=== PATIENT | male | born 1965 | race Caucasian/White ===

== ENCOUNTER 2023-06-17 04:56 | Inpatient (IN) ==
[2023-06-17] MEDS: SODIUM CHLORIDE 0.9% 1,000 ML IV ONE (05:56)
[2023-06-17] MEDS: HYDROmorphone INJ 0.5 MG/0.5 ML SYR IV STA (05:56)
[2023-06-17] MEDS: ONDANSETRON INJ 2 MG/ML 2 ML VIAL IV STA (05:56)
[2023-06-17 06:10] LABS: Basophils # (auto) 0.06 K/uL (0.00-0.20); Basophils % (auto) 0.5 %; Eosinophils # (auto) 0.12 K/uL (0.00-0.50); Eosinophils % (auto) 1.1 %; Hematocrit (blood only) 38.9 % (42.0-52.0); Hemoglobin 13.1 g/dl (14.0-18.0); Immature Granulocytes # (auto) 0.07 K/uL (0.01-0.20); Immature Granulocytes % (auto) 0.6 %; Lymphocytes # (auto) 1.62 K/uL (1.20-3.40); Lymphocytes % (auto) 14.6 %; Mean Corpuscular Hemoglobin 29.7 pg (25.0-34.0); Mean Corpuscular Hgb Conc 33.7 g/dL (32.0-36.0); Mean Corpuscular Volume 88.2 fL (80.0-100.0); Mean Platelet Volume 10.6 fL (9.4-12.4); Monocytes # (auto) 1.01 K/uL (0.11-0.59); Monocytes % (auto) 9.1 %; Neutrophils # (auto) 8.21 K/uL (1.40-6.50); Neutrophils % (auto) 74.1 %; Platelet Count 283 K/uL (130-400); RDW Coefficient of Variation 14.5 % (11.5-14.5); RDW Standard Deviation 46.9 fL (36.4-46.3); Red Blood Count 4.41 M/uL (4.70-6.10); White Blood Count 11.09 K/ul (4.8-10.8)
[2023-06-17 06:29] LABS: Albumin Level 4.2 gm/dl (3.4-5.0); Bilirubin,Total 0.6 mg/dl (0.2-1.0); Calcium 9.7 mg/dl (8.6-10.3); Potassium 3.8 mmol/L (3.5-5.1)
[2023-06-17 06:35] LABS: Albumin Globulin Ratio 1.2 (0.9-2); BUN Creatinine Ratio 23.2 (10-20); Creatinine Clr Calc Pharmacy 79.7 ml/min; Est GFR (African American) 111.4 ml/min; Est GFR (Non-African American) 96.1 ml/min; Globulin 3.4 gm/dl (2.5-4.0); Total Protein 7.6 gm/dl (6.0-8.3)
[2023-06-17 06:49] LABS: Thyroid Stimulating Hormone 1.055 uIu/ml (0.300-4.500)
--- NOTE | 2023-06-17 07:05 | Emergency Department Note ---
Impression & Plan Irritation around percutaneous endoscopic gastrostomy (PEG) tube site, Leaking PEG tube The patient will be admitted by the [facility]. I did consult with the surgeon covering for Dr. Skelton. ED Provider Note NAME: STEVEN GUEVARA AGE: 58 SEX: Male INFORMANT: Patient ED PROVIDER(S): Saadia Bacon DO CHIEF COMPLAINT: Bleeding around PEG tube PLAN: Disposition: Admit to the [facility] MEDICAL DECISION MAKING: This is a 58-year-old male patient who presents to the emergency department with significant bleeding around his PEG tube that was placed just 3 days ago. Patient explains that he has had significant problems with the tube since it was placed. There is significant leak of HCl around the tube to the point that it is burning his skin. Blood was oozing from the tube site initially but then over the past 24 hours the amount of blood has significantly increased. Around 9 PM this evening, he states that the blood was pumping out to the point that he was using more than 40 4 x 4's to control the bleeding. He called EMS to bring him here for evaluation. Upon presentation to the ER, there was no active bleeding on my evaluation. There was severe excoriation and chan noted to the skin surrounding the tube site. Laboratory studies revealed mild leukocytosis with a white count of 11. Hemoglobin was stable at 13. BUN/creatinine ratio was slightly elevated at 23.2 as the patient has not been able to take anything through the tube or by mouth over the past 3 days. On physical exam, he appears significantly dehydrated. Patient was bolused with IV normal saline solution. He received IV Dilaudid and Zofran for the discomfort he had of the skin surrounding the PEG tube. I discussed the case with [facility] and Dr. Jang they will evaluate for further management. Triage Nursing notes: Reviewed and agree with them. Vital Signs: reviewed and unremarkable Chronic Medical/Social Conditions affecting care: Esophageal cancer; status post PEG tube placement Differential Diagnosis: PEG tube dysfunction, dehydration, skin chan surrounding the PEG tube Diagnostics, independently interpreted by me: Imaging studies: Portable chest x-ray: There is free air under the diaphragm most likely secondary to the recent laparoscopy procedure he had. There is perihilar lymphadenopathy noted right greater than left. HPI: 58 year old Male arrives for evaluation of bleeding from PEG tube site. Patient presents stating that significant amount of blood was coming from out around the PEG tube site over the past 24 hours. This amount of blood became much heavier around 9 PM last evening and was soaking through 4 x 4's. Patient is also concerned because there is significant leakage of HCl from around the site on the skin which is causing chan. He has not used the PEG tube yet for feedings. He does note that when he takes fluids by mouth that they seem to extravasate out around the PEG tube. PAST MEDICAL HISTORY: See Below, PAST SURGICAL HISTORY: See Below, SOCIAL HISTORY: The patient lives alone, he does smoke HOME MEDICATIONS: None ALLERGIES: None VITALS: See Below PHYSICAL EXAMINATION: HEENT: Head - normocephalic and atraumatic. Pupils are equal, round, and reactive to light. Extraocular eye muscles are intact, and sclera are anicteric. Nose -dry nasal mucosa without discharge. Mouth -extremely dry buccal mucosa. Oropharynx is nonerythematous and there is no tonsillar exudate or edema noted. Neck: Supple; no cervical lymphadenopathy Heart: Regular rate and rhythm. There is a normal S1 and S2 with no murmurs, clicks, or gallops appreciated. Lungs: Clear to auscultation bilaterally with no wheezes, rales, or rhonchi. Abdomen: Soft, obvious first and second-degree chan to the anterior abdominal wall from HCl around the PEG tube site. There are no palpable pulsatile masses or hepatosplenomegaly. There is no guarding, rigidity, or rebound noted. Extremities: No evidence of cyanosis, clubbing, or edema. There are easily palpable peripheral pulses. Skin: warm and dry with poor turgor and no rashes. Emergency department treatment: IV normal saline bolus, IV Dilaudid, IV Zofran Emergency department course: The patient was evaluated in room B-7. A complete history and physical was performed. An IV lock was initiated and labs were drawn as above. I cleaned around the PEG tube site and removed a small amount of old blood. There was no fresh blood or bright red bleeding noted. There was very minimal leakage noted about the tube. I was able to pass some warm water through the tube with minimal leakage from the tube site. Patient had no abdominal pain with this fluid challenge. Patient was given a dose of IV Dilaudid and IV Zofran for pain on the skin of his abdominal wall and some nausea. I discussed the case with [facility]ist because the patient is unable to tolerate the pain and cannot perform tube feeds. I also discussed the case with Dr. Jang from surgery who will consult on the patient and order a contrast study under fluoroscopy. Past Med/Surg History Medical History Post traumatic stress disorder History of chest pain relating to feeding tube coming out. Esophageal adenocarcinoma Gastrostomy tube in place 04/05/23 - Dr. Tapia [facility] Right wrist fracture surgical pin right wrist Hx of renal calculi passed on own Dysphagia "can't get food past my thyroid, difficult to swallow; no solid foods for 7-8 months" History of COVID-19 x6, most recent 03/2022, not hosp; dysphagia, gum swelling and made teeth hurt, "swollen" thyroid>still making it hard to eat solid food Anxiety Surgical History History of surgery failed peg tube, Apr 06 2023 History of endoscopy History of colonoscopy Hx of tonsillectomy Childhood; Hx of appendectomy Family History Father Prostate cancer Hypertension Dyslipidemia Brother Myocardial infarction, Onset Age: 53 Mother Stroke Brother No problems noted. 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; [employer]; 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 How many Children do You have: 1 Other Information That Helps Us Care for You: No Feels Safe at Home: No Is there a partner from a previous relationship who is making you feel unsafe now?: No Any Concerns about Your Family Situation: No Would You Like to Speak to Someone About Your Situation: No Safety Concerns: Feels Safe At This Time Childhood Exposure to Second-Hand Smoke: No during the past year weight has: decreased > 10 lbs Assistive Devices: None Allergies Allergies Allergy/AdvReac Type Severity Reaction Status Date / Time No Known Allergies Allergy Verified 06/07/23 08:08 Home Meds Home Medications Medication Instructions Recorded Confirmed No Known Home Medications 05/25/23 06/14/23 Results & Data (ED) Vital Signs Vital Signs - 24 hr 06/17/23 10:04 06/17/23 10:41 Pulse Rate 76 Pulse Rate [Apical] 56 L Respiratory Rate 17 Respiratory Effort / Characteristics Non-Labored Spontaneous Respiratory Depth Normal Blood Pressure [Left Arm] 121/71 Blood Pressure Mean [Left Arm] 87 Blood Pressure Position [Left Arm] Lying Pulse Oximetry 97 Oxygen Delivery Method Room Air Laboratory Data 06/17/23 22:57 06/18/23 06:09 Lab Results 06/17/23 06/17/23 Range/Units 05:50 10:10 WBC 11.09 H (4.8-10.8) K/ul RBC 4.41 L (4.70-6.10) M/uL Hgb 13.1 L (14.0-18.0) g/dl Hct 38.9 L (42.0-52.0) % MCV 88.2 (80.0-100.0) fL MCH 29.7 (25.0-34.0) pg MCHC 33.7 (32.0-36.0) g/dL RDW Std Deviation 46.9 H (36.4-46.3) fL RDW Coeff of Mary 14.5 (11.5-14.5) % Plt Count 283 (130-400) K/uL MPV 10.6 (9.4-12.4) fL Immature Gran % (Auto) 0.6 % Neut % (Auto) 74.1 % Lymph % (Auto) 14.6 % Metcalfe % (Auto) 9.1 % Eos % (Auto) 1.1 % Baso % (Auto) 0.5 % Neut # (Auto) 8.21 H (1.40-6.50) K/uL Lymph # (Auto) 1.62 (1.20-3.40) K/uL Metcalfe # (Auto) 1.01 H (0.11-0.59) K/uL Eos # (Auto) 0.12 (0.00-0.50) K/uL Baso # (Auto) 0.06 (0.00-0.20) K/uL Immature Gran # (Auto) 0.07 (0.01-0.20) K/uL Sodium 140 (136-145) mmol/L Potassium 3.8 (3.5-5.1) mmol/L Chloride 104 (98-107) mmol/L Carbon Dioxide 27 (21-32) mmol/L Anion Gap 9 (3-11) BUN 19 (6-23) mg/dl Creatinine 0.82 (0.6-1.4) mg/dl Est Cr Clr Drug Dosing 79.7 ml/min Est GFR ( Amer) 111.4 ml/min Est GFR (Non-Af Amer) 96.1 ml/min BUN/Creatinine Ratio 23.2 H (10-20) Glucose 96 (70-99(Fasting)) mg/dl Calcium 9.7 (8.6-10.3) mg/dl Total Bilirubin 0.6 (0.2-1.0) mg/dl AST 12 L (13-39) U/L ALT 14 (7-52) U/L Alkaline Phosphatase 101 (34-104) U/L Total Protein 7.6 (6.0-8.3) gm/dl Albumin 4.2 (3.4-5.0) gm/dl Globulin 3.4 (2.5-4.0) gm/dl Albumin/Globulin Ratio 1.2 (0.9-2) TSH 1.055 (0.300-4.500) uIu/ml Urine Color Dark Yellow Urine Appearance Cloudy A (Clear) Urine pH 5.0 (4.5-7.5) Ur Specific [place] 1.043 H (1.000-1.030) Urine Protein Trace H (Negative) Urine Glucose (UA) Negative (Negative) Urine Ketones Trace H (Negative) Urine Blood Negative (Negative) Urine Nitrite Negative (Negative) Urine Bilirubin Negative (Negative) Urine Urobilinogen Negative (Negative) Ur Leukocyte Esterase Negative (Negative) Urine RBC 5-10 H (0-4) /hpf Urine WBC 0-5 (0-5) /hpf Ur Epithelial Cells 0-5 (0-5) /lpf Calcium Oxalate Crystal Present A (None Prsent) Urine Bacteria 1+ H (Negative) Urine Mucus Present A (None Prsent) Administered Medications Hydromorphone HCl (Hydromorphone Inj 1 Mg/Ml Syringe) 1 mg IV Q4H PRN PRN Reason: Pain Scale 6,7,8,9,10 Stop: 07/01/23 09:49 Last Admin: 06/18/23 04:43 Dose: 1 mg Documented By: Admin: 06/17/23 19:07 Dose: 1 mg Documented By: Admin: 06/17/23 14:46 Dose: 1 mg Documented By: Admin: 06/17/23 10:01 Dose: 1 mg Documented By: CHUY Sodium Chloride (Nss) 1,000 mls @ 80 mls/hr IV .[id number] JULIANA Stop: 07/17/23 09:59 Last Infusion: 06/18/23 05:16 Dose: Infused Documented By: Admin: 06/18/23 05:15 Dose: Not Given Documented By: Admin: 06/17/23 09:59 Dose: 80 mls/hr Documented By: CHUY Discontinued Medications Hydromorphone HCl (Hydromorphone Inj 0.5 Mg/0.5 Ml Syr) 0.5 mg IV NOW STA Stop: 06/17/23 05:47 Last Admin: 06/17/23 05:56 Dose: 0.5 mg Documented By: CHIQUIS Hydromorphone HCl (Hydromorphone Inj 2 Mg/Ml Syr/Vial) 2 mg IV NOW STA Stop: 06/17/23 22:27 Last Admin: 06/17/23 22:38 Dose: 2 mg Documented By: IRINA Sodium Chloride (Nss) 1,000 mls @ 999 mls/hr IV .Q1H1M ONE Stop: 06/17/23 06:46 Last Infusion: 06/17/23 07:58 Dose: Infused Documented By: Admin: 06/17/23 05:56 Dose: 999 mls/hr Documented By: CHIQUIS Ioversol (Optiray 320 500ml) 88 ml IV ONCE ONE Stop: 06/17/23 09:12 Last Admin: 06/17/23 09:12 Dose: 88 ml Documented By: HOWARD Ondansetron HCl (Ondansetron Inj 2 Mg/Ml 2 Ml Vial) 4 mg IV NOW STA Stop: 06/17/23 05:47 Last Admin: 06/17/23 05:56 Dose: 4 mg Documented By: CHIQUIS Silver Sulfadiazine (Silver Sulfadiazine 1% Cr 50 Gm Jar) Confirm Administered Dose 150 appln .ROUTE .STK-MED ONE Stop: 06/17/23 10:26 Last Admin: 06/17/23 10:39 Dose: 150 appln Documented By: CC Silver Sulfadiazine (Silver Sulfadiazine 1% Cr 50 Gm Jar) 1 appln EXT NOW STA Stop: 06/17/23 22:27 Last Admin: 06/17/23 22:55 Dose: 1 appln Documented By: IRINA Discharge Plan Visit Data Chief Complaint: Feeding/PEG Tube Replacement ED Provider: Saadia Bacon Discharge Problem: Irritation around percutaneous endoscopic gastrostomy (PEG) tube site, Leaking PEG tube Patient Disposition: Admitted As Inpatient Discharge Instructions Interventions: ED Discharge Assessment Last Done: 06/17/23 14:19
--- NOTE | 2023-06-17 07:26 | XRay Report ---
XR chest 1V portable HISTORY: 58 years-old Male weakness acute weakness COMPARISON: 05/24/2023 TECHNIQUE: AP view of the chest. FINDINGS: Unchanged right paratracheal lesion measuring approximately 4.5 cm. Cardiomediastinal and hilar silho uettes are within normal limits. No pneumothorax, pleural effusion, airspace consolidation or pulmona ry edema. Bones appear grossly intact. Healed mid left clavicular fracture deformity. Large amount of pneumoperitoneum. Gastrostomy tube noted. IMPRESSION: 1. Pneumoperitoneum of unknown etiology. Differential considerations include perforated viscus, recen t abdominal surgery or gastrostomy tube dysfunction in this patient with history of esophageal carcin shekhar. 2. Metastatic right paratracheal lymphadenopathy redemonstrated. ACT 112: Negative or not required by law. The above report was generated using voice recognition software. It may contain grammatical, syntax o r spelling errors. Electronically signed by: Tito Cisse M.D. 06/17/2023 7:23 AM
--- NOTE | 2023-06-17 07:55 | Electrocardiogram Report ---
Test Reason : Blood Pressure : / mmHG Vent. Rate : 058 BPM Atrial Rate : 058 BPM P-R Int : 124 ms QRS Dur : 112 ms QT Int : 472 ms P-R-T Axes : 076 075 034 degrees QTc Int : 463 ms Sinus bradycardia Incomplete right bundle branch block Borderline ECG When compared with ECG of 07-JUN-2023 09:52, Nonspecific T wave abnormality now evident in Anterior leads Confirmed by Juancho Castellano ([id number]) on 06/17/2023 7:55:21 AM Referred By: Confirmed By:Domo Castellano
--- NOTE | 2023-06-17 08:44 | History & Physical Report ---
Date of Service June 17, 2023 Assessment & Plan (1) Feeding tube obstruction: Plan: surgery is evaluate the feeding tube and due to bleeding and leakage of gastric contents have placed an ostomy around the tube. However this prevents us from evaluating tube or applying any enzymatic paper cleaner to open the tube out. We will have the tube evaluated by interventional radiology on if were able to. Considerations of using a combination of pancreatic zyme and bicarbonate in 5 mL of water to help replicate what would be clog zapper CT scan does suggest some irritation of the rectus muscle however the patient is not any local tenderness or infectious component to his serology or clinical evaluation at this time and not starting any antibiotics. (2) Esophageal adenocarcinoma: Plan: diagnosis of esophageal adenocarcinoma has not received any radiation or chemotherapeutic treatment. Patient does have complete obstruction of his esophagus unable to pass an endoscope or to apply a stent. He is having difficulty handling secretions and getting oral nutrition with profound weight loss. Intravenous fluids at this time not supporting nutritional care surgical evaluation. Patient has some complaints of anxiety will offer lorazepam to help calm his nerves during this stressful time History of Present Illness Primary Care Provider: Ge Duenas 58-year-old gentleman with a smoking history who presents with obstructed recently placed surgical feeding tube with bleeding at the site ( placed 06/14/23) history of adenocarcinoma of the upper one third of the esophagus (HER2 negative, PDL1 expression, [id number], stage III). The patient did have a completion of the staging work-up which included a PET/CT scan which showed no evidence of metastatic disease. . Concurrent chemotherapy with radiation therapy. 28 - 33 fractions due to the fact that the patient is not a surgical candidate. Original feeding tube placed in mar 31 at [place], this fell out in his sleep, replaced by Dr Skelton 06/14/23 cxr on presentation has pneumoperioneum, but with recent surgery can be from this, pending CT abd pelvis Shows G-tube apparently placed within the stomach there is some fluid collection along the course of the G-tube some irritation in the rectus muscle however patient is not clinically appearing consistent with a rectus sheath infection at this time Allergies Allergy/AdvReac Type Severity Reaction Status Date / Time No Known Allergies Allergy Verified 06/07/23 08:08 Home Medications Medication Instructions Recorded Confirmed Type No Known Home Medications 05/25/23 06/14/23 History Past Med/Surg History Medical History Post traumatic stress disorder History of chest pain relating to feeding tube coming out. Esophageal adenocarcinoma Gastrostomy tube in place 04/05/23 - Dr. Tapia [facility] Right wrist fracture surgical pin right wrist Hx of renal calculi passed on own Dysphagia "can't get food past my thyroid, difficult to swallow; no solid foods for 7-8 months" History of COVID-19 x6, most recent 03/2022, not hosp; dysphagia, gum swelling and made teeth hurt, "swollen" thyroid>still making it hard to eat solid food Anxiety Surgical History History of surgery failed peg tube, Apr 06 2023 History of endoscopy History of colonoscopy Hx of tonsillectomy Childhood; Hx of appendectomy Family History Father Prostate cancer Hypertension Dyslipidemia Brother Myocardial infarction, Onset Age: 53 Mother Stroke Brother No problems noted. 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; [employer]; 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 How many Children do You have: 1 Other Information That Helps Us Care for You: No Feels Safe at Home: No Is there a partner from a previous relationship who is making you feel unsafe now?: No Any Concerns about Your Family Situation: No Would You Like to Speak to Someone About Your Situation: No Safety Concerns: Feels Safe At This Time Childhood Exposure to Second-Hand Smoke: No during the past year weight has: decreased > 10 lbs Assistive Devices: None Review of Systems Review of Systems: moderate distress and anxiety no headache, no visual changes difficulty handling secretions spitting into a cup no chest pain, pressure or palpitations no shortness of breath, cough or wheezes patient has tenderness around his PEG tube site with bleeding and fluid extravasation around the tube no dysuria, hematuria or frequency no focal joint pain or swelling no back pain, CVA tenderness or radicular pain no bruising, bleeding or rashes no focal signs of weakness or numbness or altered sensation complaints of anxiety Physical Exam Physical Exam: The patient appeared thin and chronically ill Vital signs as documented. Head exam is normocephalic atraumatic Neck is without JVD, thyromegaly, or carotid bruits. Lungs are clear to auscultation, no focal loss of breath sounds Cardiac exam, Rhythm is regular.. No murmurs, rubs or gallops. Abdominal exam reveals PEG tube in lower abdomen, bleeding and gastric leaking around tube Extremities are nonedematous and both pedal pulses are present Neurologic exam is alert and oriented, no focal loss of strength or sensation Skin is without bruises or rashes Psychologically is with concerns for anxiety Results & Data Results & Data Vital Signs (Past 12 Hours) Vital Signs Temp Pulse Resp BP Pulse Ox O2 Del Method 06/17/23 06:38 70 98 Room Air 06/17/23 06:30 73 18 112/69 97 06/17/23 05:46 63 06/17/23 05:03 98.1 F 70 16 122/77 94 Room Air Laboratory Results Reviewed CBC reviewed chemistry Diagnostic Findings reviewed checks x-ray with pneumoperitoneum Medications Administered reviewed EKG with sinus bradycardia PG Care Time/CCT Total # of Minutes Spent Total Time Spent with Patient: Total time spent is greater than 50% in coordination of care (as documented) at patient's floor/unit and/or counseling patient: Coding Level of Care Code 78704 INT INP/OBS CARE 255MIN Diagnoses Feeding tube obstruction T85.598A Esophageal adenocarcinoma C15.9
[2023-06-17] MEDS: OPTIRAY 320 500ml IV ONE (09:12)
[2023-06-17] MEDS ORDERED: HYDROmorphone INJ 0.5 MG/0.5 ML SYR IV PRN (09:50)
--- NOTE | 2023-06-17 09:54 | CT Scan Report ---
ABDOMEN AND PELVIS CT WITH IV CONTRAST CT DOSE: 329.39 mGy.cm HISTORY: Acute onset abdominal pain with malfunctioning G-tube. pneumoperitoneum, 06/14/23 gtube non functioning TECHNIQUE: Multiaxial CT images of the abdomen and pelvis were performed following the IV administrat ion of 88 cc of Optiray, A dose lowering technique was utilized adhering to the principles of ALARA. COMPARISON STUDY: PET/CT 04/11/2023 FINDINGS: Trace pericardial effusion. Coronary artery calcifications. Trace pleural effusions with mi ld bibasilar atelectasis, bronchial wall thickening and pulmonary emphysema. Subtle bibasilar centril obular/tree-in-bud nodules. Large amount of pneumoperitoneum has progressively worsened from the prior study. Unremarkable spleen and pancreas. Unchanged nodular thickening of the right adrenal gland. There is a 2.8 cm soft tissue attenuating indeterminate structure noted within the abdominal and upper quadrant anterior to the herrera perior pole left kidney on image 70. The gallbladder is unremarkable. Scattered mostly subcentimeter hypodense foci of the liver are again noted. 2 cm lesion of the inferior right hepatic lobe is again seen, possibly a hemangioma. Patent portal vein. There are a few nonobstructing calculi noted within the bilateral kidneys measuring up to 3 mm on the right and 4 mm on the left. A few left-sided renal cysts are again seen measuring up to 1.3 cm. No hydronephrosis or ureteral calculi. Prostatomegaly wi th urinary bladder wall thickening suggestive of chronic outlet obstruction. Atherosclerosis of the a ranjith without aneurysm. Mild generalized body wall edema. A gastrostomy tube is in place. Air and fluid is noted surrounding the gastrostomy tube with extension to the abdominal wall on image 126. There is asymmetric enlargeme nt and heterogeneity of the left rectus sheath. Hyperdense ascites ([place] of 74) noted in the ab domen and pelvis, notably within the pericolic gutters and dependent pelvis. There is an irregular cl uster of air foci within the abdominal right lower quadrant, possibly air within loops of bowel. No d rainable fluid collection identified. The appendix is reportedly surgically absent. No acute fracture or destructive bone lesion identified. Degenerative changes of the spine, pelvis and hips. Lumbar le voscoliosis. IMPRESSION: 1. Limited exam without the use of enteric contrast. 2. A gastrostomy tube is in place and there is a large amount of likely associated pneumoperitoneum w hich has increased compared to the 04/11/2023 study. The distal tip of the tube is present within the stomach. 3. Air and fluid is noted tracking along the gastrostomy tube within the abdominal wall and there is asymmetric enlargement and heterogeneity of the left rectus musculature. Correlate clinically to excl ude infection. 4. Small amount of hyperdense ascites suggestive of hemoperitoneum. Gastric contents could appear sim ilarly. 5. Nonobstructing bilateral nephrolithiasis. 6. Additional findings as above. ACT 112: Negative or not required by law. The above report was generated using voice recognition software. It may contain grammatical, syntax o r spelling errors. Electronically signed by: Tito Cisse M.D. 06/17/2023 9:51 AM
[2023-06-17] MEDS: SODIUM CHLORIDE 0.9% 1,000 ML IV SCH (09:59)
[2023-06-17] MEDS: HYDROmorphone INJ 1 MG/ML SYRINGE IV PRN (10:01)
[2023-06-17 10:36] LABS: Appearance Urine Cloudy (Clear); Bilirubin Urine Negative (Negative); Blood Urine Negative (Negative); Color Urine Dark Yellow; Glucose Urine UA Negative (Negative); Ketones Urine Trace (Negative); Leukocyte Esterase Urine Negative (Negative); Nitrite Urine Negative (Negative); Protein Urine Trace (Negative); Specific Gravity Urine 1.043 (1.000-1.030); Urobilinogen Urine Negative (Negative)
[2023-06-17] MEDS: SILVER SULFADIAZINE 1% CR 50 GM JAR ONE (10:39)
[2023-06-17 10:59] LABS: Epithelial Cell Urine 0-5 /lpf (0-5); Mucus Urine Present (None Prsent)
[2023-06-17 11:00] LABS: Bacteria Urine 1+ (Negative); Calcium Oxalate Crystals Urine Present (None Prsent); WBC Urine 0-5 /hpf (0-5)
--- NOTE | 2023-06-17 13:21 | Surgery Consultation ---
Date of Consultation June 17, 2023 Assessment & Plan (1) Feeding tube obstruction: With leakage causing chemical burn which is oozing. Silvadene applied and ostomy appliance fashioned to try and protect the skin. As the tube is within the ostomy bag, would not try to declog tonight. Will let Dr. Skelton see pt tomorrow for more definitive decision. Not currently septic; does not have a surgical abdomen. No sign of current infection at the site. OK to eat as tolerated. History of Present Illness Reason for Consultation: ostomy leaking Requesting Physician: Dr Alcala Attending Physician: Dr. Alcala History of Present Illness 58 yr old man with inoperable esophageal cancer scheduled to undergo radiation and chemotherapy. Had issues with a peg tube placed at [place] (leakage). tube fell out after 4 weeks. Had it replaced with Dr. Skelton on 06/14. It has been leaking around the site, causing a chemical burn and bleeding. Area is very painful. He is extremely frustrated and angry over the situation. CT scan shows tube is in the stomach. There is pneumoperitoneum (postop). There is air/ fluid around the tube in the rectus sheath. Allergies Allergy/AdvReac Type Severity Reaction Status Date / Time No Known Allergies Allergy Verified 06/07/23 08:08 Home Medications Medication Instructions Recorded Confirmed Type No Known Home Medications 05/25/23 06/14/23 History Patient History Medical History Post traumatic stress disorder History of chest pain relating to feeding tube coming out. Esophageal adenocarcinoma Gastrostomy tube in place 04/05/23 - Dr. Tapia [facility] Right wrist fracture surgical pin right wrist Hx of renal calculi passed on own Dysphagia "can't get food past my thyroid, difficult to swallow; no solid foods for 7-8 months" History of COVID-19 x6, most recent 03/2022, not hosp; dysphagia, gum swelling and made teeth hurt, "swollen" thyroid>still making it hard to eat solid food Anxiety Surgical History History of surgery failed peg tube, Apr 06 2023 History of endoscopy History of colonoscopy Hx of tonsillectomy Childhood; Hx of appendectomy Family History Father Prostate cancer Hypertension Dyslipidemia Brother Myocardial infarction, Onset Age: 53 Mother Stroke Brother No problems noted. 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 Tube does not flush or suction (? clogged). Results & Data Vital Signs (Past 12 Hours) Vital Signs Temp Pulse Pulse Resp BP BP Pulse Ox 06/17/23 10:41 56 L 17 121/71 97 06/17/23 10:04 76 06/17/23 06:38 70 98 06/17/23 06:30 73 18 112/69 97 06/17/23 05:46 63 06/17/23 05:03 36.7 C 70 16 122/77 94 O2 Del Method 06/17/23 10:41 Room Air 06/17/23 10:04 06/17/23 06:38 Room Air 06/17/23 06:30 06/17/23 05:46 06/17/23 05:03 Room Air
[2023-06-17] MEDS: HYDROmorphone INJ 2 MG/ML SYR/VIAL IV STA (22:38)
[2023-06-17] MEDS: SILVER SULFADIAZINE 1% CR 50 GM JAR EXT STA (22:55)
[2023-06-17 23:09] LABS: Hematocrit (blood only) 35.2 % (42.0-52.0); Hemoglobin 11.9 g/dl (14.0-18.0)
[2023-06-18 06:44] LABS: A calco-baum cmplx NotReported Not Detected (NotDetected); Bact fragilis Not Reported Not Detected (NotDetected); Blood Culture Id Panel See PCR Comment (NotDetected); C auris Not Reported Not Detected (NotDetected); Calbicans Not Reported Not Detected (NotDetected); Candida glabrata Not Reported Not Detected (NotDetected); Candida krusei Not Reported Not Detected (NotDetected); Cneoformans/gatti Not Reported Not Detected (NotDetected); Cparapsilosis Not Reported Not Detected (NotDetected); E cloacae compx Not Reported Not Detected (NotDetected); Efaecalis Not Reported Not Detected (NotDetected); Efaecium Not Reported Not Detected (NotDetected); Enterobacterales Not Reported Not Detected (NotDetected); Escherichia coli Not Reported Not Detected (NotDetected); H influenzae Not Reported Not Detected (NotDetected); K aerogenes Not Reported Not Detected (NotDetected); Koxytoca Not Reported Not Detected (NotDetected); Kpneumoniae grp Not Reported Not Detected (NotDetected); Lmonocyt Not Reported Not Detected (NotDetected); N meningitidis Not Reported Not Detected (NotDetected); P aeruginosa Not Reported Not Detected (NotDetected); Proteus spp Not Reported Not Detected (NotDetected); Salmonella spp Not Reported Not Detected (NotDetected); Smarcescens Not Reported Not Detected (NotDetected); Staph lugdunensis Not Reported Not Detected (NotDetected); Staph spp. Not Reported DETECTED (NotDetected); Staphaureus Not Reported DETECTED (NotDetected); Staphepi Not Reported Not Detected (NotDetected); Staphylococcus spp. DETECTED (NotDetected); Stenmaltophilia Not Reported Not Detected (NotDetected); Strep agal(GrpB) Not Reported Not Detected (NotDetected); Strep pneum Not Reported Not Detected (NotDetected); Strep pyog (GrpA) Not Reported Not Detected (NotDetected); Strep spp Not Reported Not Detected (NotDetected); mecAC+MREJ Resistant Gene MRSA Not Detected (NotDetected)
[2023-06-18] MEDS ORDERED: VANCOMYCIN CONSULT ACTIVE PRN (07:24)
[2023-06-18 07:33] LABS: BUN Creatinine Ratio 25.7 (10-20); Calcium 9.1 mg/dl (8.6-10.3); Creatinine Clr Calc Pharmacy 93.3 ml/min; Est GFR (African American) 118.9 ml/min; Est GFR (Non-African American) 102.6 ml/min; Magnesium 1.9 mg/dl (1.7-2.4); Potassium 3.9 mmol/L (3.5-5.1)
[2023-06-18 07:59] LABS: Hematocrit (blood only) 35.8 % (42.0-52.0); Mean Corpuscular Hemoglobin 29.7 pg (25.0-34.0); Mean Corpuscular Hgb Conc 33.5 g/dL (32.0-36.0); Mean Corpuscular Volume 88.6 fL (80.0-100.0); Mean Platelet Volume 10.9 fL (9.4-12.4); Platelet Count 280 K/uL (130-400); RDW Coefficient of Variation 14.6 % (11.5-14.5); RDW Standard Deviation 47.7 fL (36.4-46.3); Red Blood Count 4.04 M/uL (4.70-6.10); White Blood Count 11.31 K/ul (4.8-10.8)
[2023-06-18] MEDS: VANCOMYCIN HCL 1,500 MG in SODIUM CHLORIDE 0.9% 500 ML IV ONE (09:33)
--- NOTE | 2023-06-18 10:03 | Surgery Progress Note ---
Date of Service June 18, 2023 Assessment & Plan (1) Leaking PEG tube: Plan: Etiology unclear as I used the same gastrotomy opening as before. Nonetheless I added fluid to the balloon and was able to pull it up against the anterior abdominal wall. This does not stop the leakage however the soonest traction is off the tube the leakage recurs. We did clean up the area and replaced Silvadene and secured the tube. We placed a hemostat to help the tube from moving around which has decreased the leakage. Difficult scenario. Certainly part of the problem is his malnutrition and inability to heal surgical sites. He believes he would like the tube removed however I believe this would at least temporarily make the drainage worse. I am going to come back at lunchtime and try to replace with a shorter christie varghese type tube .... This would have potentially allow us to keep the balloon tighter , prevent movement of the long external to and decrease the amount of leakage. If this fails our option would be to simply remove the tube versus a laparoscopy and takedown the gastrocutaneous fistula. Admission and Anticipated Discharge Date Admission Date: June 17, 2023 Subjective Patient seen. Events of the weekend noted. He states he started getting leakage after hard cough at home where fluid came around the tube onto his skin. He tried different techniques to control this at home. He is extremely frustrated and anxious. He initially did not even let me examine him but we convinced him to take the bag off and let me look. Physical Exam Gastrointestinal (Abdomen): G-tube in place. There is a large amount of gastric acid leaking around the tube onto the skin causing the skin burn. He is quite sore. Results & Data Vital Signs (Past 12 Hours) Vital Signs Temp Pulse Resp BP Pulse Ox O2 Del Method 06/18/23 07:00 36.4 C L 54 L 16 116/65 95 Room Air PG Care Time/CCT Total # of Minutes Spent Total Time Spent with Patient: Total time spent is greater than 50% in coordination of care (as documented) at patient's floor/unit and/or counseling patient: Coding Level of Care Code 63937 Post Operative Follow-Up Diagnoses Leaking PEG tube K94.23
[2023-06-18] MEDS ORDERED: ACETAMINOPHEN 1,000 MG/100 ML VIAL IV PRN (11:03)
[2023-06-18] MEDS ORDERED: HYDROmorphone INJ 0.5 MG/0.5 ML SYR IV PRN (11:04)
[2023-06-18] MEDS: HYDROmorphone INJ 1 MG/ML SYRINGE IV PRN ×2 (15:05→19:49)
[2023-06-18] MEDS: ceFAZolin 2000MG 2,000 MG/15 ML SYR IV SCH (15:05)
--- NOTE | 2023-06-18 17:03 | Hospitalist Progress Note ---
Date of Service June 18, 2023 Assessment & Plan (1) Feeding tube obstruction: Plan: surgery is evaluate the feeding tube and due to bleeding and leakage of gastric contents have placed an ostomy around the tube. CT scan does suggest some irritation of the rectus muscle, one culture is with Gram positive, starting any antibiotics following cultures surgery to revise tube on 06/19/23, pt refuses ivf and demands not to be npo except for surgery. (2) Esophageal adenocarcinoma: Plan: diagnosis of esophageal adenocarcinoma has not received any radiation or chemotherapeutic treatment. Patient does have complete obstruction of his esophagus unable to pass an endoscope or to apply a stent. He is having difficulty handling secretions and getting oral nutrition with profound weight loss. Intravenous fluids at this time not supporting nutritional care surgical evaluation. Patient has some complaints of anxiety will offer lorazepam to help calm his nerves during this stressful time Admission and Anticipated Discharge Date Admission Date: June 17, 2023 Subjective pt is in pain, has to hold his PEG tube upright so that it does not leak or bleed, for revision on 06/19/23 Physical Exam Physical Exam: The patient appeared thin and chronically ill Vital signs as documented. Head exam is normocephalic atraumatic Neck is without JVD, thyromegaly, or carotid bruits. Lungs are clear to auscultation, no focal loss of breath sounds Cardiac exam, Rhythm is regular.. No murmurs, rubs or gallops. Abdominal exam reveals PEG tube in lower abdomen, bleeding and gastric leaking around tube continues Extremities are nonedematous and both pedal pulses are present Neurologic exam is alert and oriented, no focal loss of strength or sensation Skin is without bruises or rashes Psychologically is with concerns for anxiety Results & Data Results & Data Vital Signs (Past 12 Hours) Vital Signs Temp Pulse Resp BP Pulse Ox O2 Del Method 06/18/23 14:40 98.6 F 64 16 116/71 93 Room Air 06/18/23 07:00 97.5 F L 54 L 16 116/65 95 Room Air Laboratory Results review cbc review prp PG Care Time/CCT Total # of Minutes Spent Total Time Spent with Patient: Total time spent is greater than 50% in coordination of care (as documented) at patient's floor/unit and/or counseling patient: Coding Level of Care Code 52697 SUB INP/OBS CARE 2/35MIN Diagnoses Feeding tube obstruction T85.598A Esophageal adenocarcinoma C15.9
[2023-06-18] MEDS: LORazepam 0.5 MG in SYRINGE 0.25 ML IV PRN (21:11)
--- NOTE | 2023-06-19 06:39 | History & Physical Bridge Note ---
Date of Service June 19, 2023 History & Physical Bridge Note I have examined the patient, reviewed the History & Physical and in the interval since the performance of the History & Physical I have noted the following changes of clinical significance: no changes noted pt seen. uneventful night. decided he does not want the jejunostomy tube however wants the gastric tube removed and fistula taken down. discussed the risks of poor nutrition without another feeding tube. he understands. discussed risks of todays surgery ( bleeding/infection/injury to another organ/blood clots etc...). questions answered. he is agreeable.
[2023-06-19 06:42] LABS: Hematocrit (blood only) 35.5 % (42.0-52.0); Hemoglobin 11.8 g/dl (14.0-18.0); Mean Corpuscular Hemoglobin 29.4 pg (25.0-34.0); Mean Corpuscular Hgb Conc 33.2 g/dL (32.0-36.0); Mean Corpuscular Volume 88.5 fL (80.0-100.0); Mean Platelet Volume 10.9 fL (9.4-12.4); Platelet Count 246 K/uL (130-400); RDW Coefficient of Variation 14.3 % (11.5-14.5); RDW Standard Deviation 46.6 fL (36.4-46.3); Red Blood Count 4.01 M/uL (4.70-6.10); White Blood Count 10.44 K/ul (4.8-10.8)
[2023-06-19 07:07] LABS: BUN Creatinine Ratio 21.7 (10-20); Calcium 8.7 mg/dl (8.6-10.3); Creatinine Clr Calc Pharmacy 94.7 ml/min; Est GFR (African American) 119.6 ml/min; Est GFR (Non-African American) 103.2 ml/min; Magnesium 1.7 mg/dl (1.7-2.4); Potassium 3.7 mmol/L (3.5-5.1)
--- NOTE | 2023-06-19 11:02 | Anesthesiology Consultation ---
Date of Service June 19, 2023 History Surgery Operation Date: 06/19/23 13:45 Proposed Procedures p Take Down Gastric Fistula - Simba Skelton DO s Laparoscopic Operative - Simba Skelton DO Height/Weight Height: 6 ft 2 in Weight: 58.8 kg Allergies Allergy/AdvReac Type Severity Reaction Status Date / Time No Known Allergies Allergy Verified 06/07/23 08:08 Medications Home Medications Medication Instructions Recorded Confirmed Last Taken No Known Home Medications 05/25/23 06/14/23 Unknown Active Medications Generic Name Dose Route Start Last Admin Trade Name Freq PRN Reason Stop Dose Admin Hydromorphone HCl 1.5 mg 06/18/23 11:04 06/18/23 15:05 Hydromorphone Inj 1 Mg/Ml Syringe IV 07/01/23 09:49 1.5 mg Q4H PRN Administration Pain Scale 7,8,9,10 Hydromorphone HCl 1 mg 06/18/23 11:11 06/19/23 08:33 Hydromorphone Inj 1 Mg/Ml Syringe IV 07/01/23 09:49 1 mg Q4H PRN Administration Pain Scale 4,5,6 Sodium Chloride 1,000 mls @ 80 mls/hr 06/17/23 10:00 06/19/23 09:51 Nss IV 07/17/23 09:59 80 mls/hr .[id number] JULIANA Administration Lorazepam 0.5 mg/ Syringe 0.5 mls @ 2 mls/min 06/17/23 16:42 06/18/23 21:11 IV 07/17/23 16:41 2 mls/min Q6H PRN Administration Anxiety/Agitation Cefazolin Sodium 2,000 mg in 15 mls @ 3.75 mls/min 06/18/23 14:00 06/19/23 05:41 Ancef 2000mg IV 07/02/23 13:59 3.75 mls/min Q8H JULIANA Administration Past Medical History Medical History Post traumatic stress disorder History of chest pain relating to feeding tube coming out. Esophageal adenocarcinoma Gastrostomy tube in place 04/05/23 - Dr. Tapia [facility] Right wrist fracture surgical pin right wrist Hx of renal calculi passed on own Dysphagia "can't get food past my thyroid, difficult to swallow; no solid foods for 7-8 months" History of COVID-19 x6, most recent 03/2022, not hosp; dysphagia, gum swelling and made teeth hurt, "swollen" thyroid>still making it hard to eat solid food Anxiety Past Family History Family History Father Prostate cancer Hypertension Dyslipidemia Brother Myocardial infarction, Onset Age: 53 Mother Stroke Brother No problems noted. Past Surgical History Surgical History History of surgery failed peg tube, Apr 06 2023 History of endoscopy History of colonoscopy Hx of tonsillectomy Childhood; Hx of appendectomy Social History Smoking Status: Current some day smoker Smoking cigarettes per day: rare Do You Dip or Chew Tobacco: No Hx Alcohol Use: No Hx Substance Use: No substance use type: does not use Last Used Substance Other:: CBD w/THC in brownies-most recent use 10-12 days ago Physical Exam Vital Signs Last Vital Signs Temp 36.6 C 06/19/23 07:30 Pulse 60 06/19/23 07:30 Resp 16 06/19/23 07:30 BP 111/69 06/19/23 07:30 Pulse Ox 94 06/19/23 07:30 O2 Del Method Room Air 06/19/23 07:30 Testing Laboratory Results 06/19/23 06:08 06/19/23 06:08 Urine Color Dark Yellow 06/17/23 10:10 Urine Appearance Cloudy (Clear) A 06/17/23 10:10 Urine pH 5.0 (4.5-7.5) 06/17/23 10:10 Ur Specific [place] 1.043 (1.000-1.030) H 06/17/23 10:10 Urine Protein Trace (Negative) H 06/17/23 10:10 Urine Glucose (UA) Negative (Negative) 06/17/23 10:10 Urine Ketones Trace (Negative) H 06/17/23 10:10 Urine Nitrite Negative (Negative) 06/17/23 10:10 Ur Leukocyte Esterase Negative (Negative) 06/17/23 10:10 Urine RBC 5-10 /hpf (0-4) H 06/17/23 10:10 Urine WBC 0-5 /hpf (0-5) 06/17/23 10:10 Ur Epithelial Cells 0-5 /lpf (0-5) 06/17/23 10:10 06/17/23 15:40 Aerobic Blood Culture - Preliminary Blood No growth in Aerobic bottle after 24 hours. Anaerobic Blood Culture - Preliminary Staphylococcus species 06/17/23 10:10 Urine Culture - Final Urine,Clean Catch No growth - less than 1,000 colonies/mL. 06/17/23 15:27 Aerobic Blood Culture - Preliminary Blood No growth in Aerobic bottle after 24 hours. Anaerobic Blood Culture - Preliminary No growth in Anaerobic bottle after 24 hours. Electrocardiogram Date: 06/17/23 Findings: + SB @ (58) and + RBBB (incomplete)
[2023-06-19] MEDS ORDERED: fentaNYL citrate PF 100 MCG/2 ML VIAL ONE (12:51)
[2023-06-19] MEDS ORDERED: ROCURONIUM BROMIDE 10 MG/ML 5 ML VIAL IV ONE (12:51)
[2023-06-19] MEDS ORDERED: MIDAZOLAM HCL 1 MG/ML 2ML VIAL ONE (12:51)
[2023-06-19] MEDS ORDERED: LIDOCAINE 2% 2 ML VIAL/AMP(20MG/ML) INFIL ONE ×2 (12:51→13:38)
[2023-06-19] MEDS ORDERED: PROPOFOL IV EMULSION 10 MG/ML 20 ML VIAL IV ONE ×2 (12:51→15:34)
[2023-06-19] MEDS ORDERED: ATROPINE SULFATE 0.1 MG/ML 10ML SYR IV PRN (13:31)
[2023-06-19] MEDS: LACTATED RINGER'S 1,000 ML IV SCH (13:31)
[2023-06-19] MEDS ORDERED: HYDROmorphone INJ 1 MG/ML SYRINGE IV PRN (13:31)
--- NOTE | 2023-06-19 13:58 | Hospitalist Progress Note ---
Date of Service June 19, 2023 Assessment & Plan (1) Feeding tube obstruction: Plan: surgery is going to remove the feeding tube and due to bleeding and leakage of gastric contents have placed an ostomy around the tube. On 06/19/[address] scan does suggest some irritation of the rectus muscle, one culture is with Gram positive, starting any antibiotics following cultures Pt refuses ivf and demands not to be npo Did not discuss TPN feeding with this patient however he has been bargaining and limiting with what we can use so I am doubtful he will agree to this. (2) Esophageal adenocarcinoma: Plan: diagnosis of esophageal adenocarcinoma has not received any radiation or chemotherapeutic treatment. Patient does have complete obstruction of his esophagus unable to pass an endoscope or to apply a stent. He is having difficulty handling secretions and getting oral nutrition with profound weight loss. Patient has some complaints of anxiety will offer lorazepam as needed anxiety Plan Disposition will based upon the premise if the patient would require or agree to TPN that we might need to keep in for additional day or 2 to we have his TPN calculated with tolerance. Watching for refeeding syndrome as he has been without oral intake for some time. Admission and Anticipated Discharge Date Admission Date: June 17, 2023 Subjective pt has leaking and bleeding along tract of g tube removal today per surgery pt wants to garrett a bit before considering a J tube have not discussed TPN as this is a new idea not to have J tube will discuss Physical Exam Physical Exam: The patient appeared thin and chronically ill Vital signs as documented. Head exam is normocephalic atraumatic Neck is without JVD, thyromegaly, or carotid bruits. Lungs are clear to auscultation, no focal loss of breath sounds Cardiac exam, Rhythm is regular.. No murmurs, rubs or gallops. Abdominal exam reveals PEG tube in lower abdomen, bleeding and gastric leaking around tube Extremities are nonedematous and both pedal pulses are present Psychologically is with anxiety Results & Data Results & Data Vital Signs (Past 12 Hours) Vital Signs Temp Pulse Pulse Resp BP BP Pulse Ox 06/19/23 13:15 98.2 F 70 20 109/66 96 06/19/23 07:30 97.9 F 60 16 111/69 94 O2 Del Method 06/19/23 13:15 Room Air 06/19/23 07:30 Room Air Laboratory Results Reviewed CBC reviewed chemistry PG Care Time/CCT Total # of Minutes Spent Total Time Spent with Patient: Total time spent is greater than 50% in coordination of care (as documented) at patient's floor/unit and/or counseling patient: Coding Level of Care Code 30732 SUB INP/OBS CARE 3/50MIN Diagnoses Feeding tube obstruction T85.598A Esophageal adenocarcinoma C15.9
[2023-06-19] MEDS ORDERED: DEXAMETHASONE SOD INJ 4 MG/ML VIAL ONE (14:43)
[2023-06-19] MEDS ORDERED: ONDANSETRON INJ 2 MG/ML 2 ML VIAL ONE (14:43)
[2023-06-19] MEDS ORDERED: HYDROmorphone INJ 1 MG/ML SYRINGE ONE (14:59)
[2023-06-19] MEDS ORDERED: SUGAMMADEX SODIUM 200 MG/2 ML VIAL IV ONE (15:45)
[2023-06-19] MEDS: BUPIVACAINE/EPINEPHRINE 0.5% MPF 1:200,000 30 ML VIAL ONE (15:51)
--- NOTE | 2023-06-19 16:04 | Operative Report ---
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 - Simba Skelton DO s Laparoscopy, laparoscopic partial gastrectomy(Not Applicable) - Simba Skelton DO Surgeon Simba Skelton DO Commercial Carpenter nils guzman Estimated Blood Loss 50 Findings Consistent with Post-Op Diagnosis Specimens portion of stomach Description of Procedure After informed consent was obtained the patient was taken to the operating room and placed in supine position. After successful intubation I removed the fluid from his gastrostomy tube and remove the feeding tube. The entire abdomen was then sterilely prepped and draped with a Betadine solution. I began by opening his lower midline incision from his prior laparoscopy. The anterior fascia was opened using cautery and #0 Vicryl stay sutures were placed. Peritoneum was elevated with hemostats and incised under direct vision using a Metzenbaum s cissor. A finger sweep was performed and a 12 mm Whipple trocar was placed. The abdomen was insufflated to 16 mmHg. Laparoscope was inserted and the abdomen was examined in 360 degrees. There was some old blood throughout the abdomen but no evidence of any active bleeding. A right upper quadrant 12 mm port which would later be converted to a 15 mm port was placed followed by right mid abdominal 5 mm port and eventually a left mid abdominal 5 mm port. I began by irrigating suctioning out the old blood. The gastrocutaneous fistula from his old gastrostomy tube was intact. I began by taking this down using several ANNIE black cartridge 60 mm staplers. Once the fistulous tract was divided I then used traction and the harmonic scalpel to take down the residual stomach that was still attached to the abdominal wall. Once extracted this was placed into an Endo Catch bag and removed from the abdomen. The fascia from the old gastrostomy tube was closed with a Power Pretty device with 0 Vicryl. Next I identified the ligament of Treitz. I counted about 15 cm distal to the ligament of Treitz and grasped it with a bowel grasper. I extended the 5 m trocar site including the fascia so that I could deliver the jejunum onto the anterior abdominal wall. 3-[address] double pursestrings. A 14 Khmer jejunostomy tube was advanced into the abdomen via a separate stab incision in the left mid abdomen. The balloon was tested. I then made an opening in the jejunum between the pursestrings. The jejunostomy tube was advanced distally and the balloon insufflated with 8 cc of saline. Both pursestrings were secured. I also used 3-0 silk to make a Witzel tunnel of about 4 cm. We then placed the jejunum back into the abdomen. The fascia of this opening was closed using 0 Vicryl in a running fashion. The wound was irrigated and closed using 3-0 Vicryl for deep layers and 4 Monocryl for skin. I did test the jejunal feeding tube and it flushed easily with sterile saline. I changed my gloves after this portion. I then reinsufflated the abdomen and reinserted the laparoscope. There was adequate hemostasis. The jejunal feeding tube was in good position. We then removed all the trocars. The fascia of the camera port was closed using 0 Vicryl in a [id number] fashion. A 15 mm port fascia was also closed using 0 Vicryl. All the wounds were irrigated and closed using 4-0 Monocryl. Marcaine with epinephrine was injected around them for postoperative analgesia. Dermabond glue was used on all of the incision sites.. A drain sponge was placed around the jejunal feeding tube. Plain packing was placed into the prior gastrostomy tube site as well as Silvadene cream on the skin burn followed by gauze and tape. The patient was awakened extubated and transferred to recovery in guarded condition. My nurse practitioner was present for the entire case and was instrumental in providing exposure running the camera assisting with the tube placement wound closure and dressing placement. I attest to the content of the Intraoperative Record and any orders documented therein. Any exceptions are noted below.
[2023-06-19] MEDS: ONDANSETRON INJ 2 MG/ML 2 ML VIAL IV PRN (16:49)
[2023-06-19] MEDS: PROMETHAZINE HCL 6.25 MG in SODIUM CHLORIDE 0.9% 50 ML IV PRN (16:58)
[2023-06-19] MEDS ORDERED: FIBERSOURCE HN 1.2 CAL 1000 ML BAG JT SCH (17:00)
[2023-06-19] MEDS: PROMETHAZINE HCL INJ 25 MG/ML 1 ML VIAL ONE (17:43)
[2023-06-19] MEDS: SODIUM CHLORIDE 0.9% 50 ML BAG ONE (17:44)
[2023-06-19] MEDS: TUBE FEEDING WATER FLUSH JT SCH (17:51)
--- NOTE | 2023-06-19 18:16 | Anesthesiology Progress Note ---
Date of Service June 19, 2023 Anesthesia Post Procedure Vital Signs Vital Signs: Temp Pulse Pulse Resp BP BP Pulse Ox 06/19/23 18:14 36.3 C L 68 14 136/75 97 06/19/23 17:50 36.3 C L 63 14 150/82 H 98 06/19/23 17:15 36.6 C 72 14 153/84 H 98 06/19/23 16:45 84 14 143/85 H 95 06/19/23 16:35 36.6 C 78 15 139/80 96 06/19/23 16:25 79 16 126/75 97 06/19/23 16:15 78 13 134/76 96 06/19/23 16:07 36.5 C 76 14 131/65 98 06/19/23 13:15 36.8 C 70 20 109/66 96 06/19/23 07:30 36.6 C 60 16 111/69 94 06/18/23 20:59 36.5 C 59 L 16 123/73 95 06/18/23 20:35 O2 Del Method O2 Flow Rate 06/19/23 18:14 Room Air 06/19/23 17:50 Room Air 06/19/23 17:15 Room Air 06/19/23 16:45 Room Air 06/19/23 16:35 Room Air 06/19/23 16:25 Oxymask 4 06/19/23 16:15 Oxymask 6 06/19/23 16:07 Oxymask 6 06/19/23 13:15 Room Air 06/19/23 07:30 Room Air 06/18/23 20:59 Room Air 06/18/23 20:35 Room Air Pain Intensity Abdomen: Pain Intensity: 8 Transfer of Care Handoff Completed per policy Notes Mental Status: alert / awake / arousable Patient Amnestic to Procedure: Yes Nausea / Vomiting: adequately controlled Pain: adequately controlled Airway Patency, RR, SpO2: stable & adequate BP & HR: stable & adequate Hydration State: stable & adequate Anesthetic Complications: no major complications apparent
[2023-06-20 07:35] LABS: Hematocrit (blood only) 32.1 % (42.0-52.0); Hemoglobin 10.9 g/dl (14.0-18.0); Mean Corpuscular Hemoglobin 29.6 pg (25.0-34.0); Mean Corpuscular Volume 87.2 fL (80.0-100.0); Mean Platelet Volume 10.7 fL (9.4-12.4); Platelet Count 287 K/uL (130-400); RDW Coefficient of Variation 14.3 % (11.5-14.5); RDW Standard Deviation 45.7 fL (36.4-46.3); Red Blood Count 3.68 M/uL (4.70-6.10); White Blood Count 11.96 K/ul (4.8-10.8)
[2023-06-20 07:46] LABS: BUN Creatinine Ratio 21.4 (10-20); Calcium 8.3 mg/dl (8.6-10.3); Creatinine Clr Calc Pharmacy 93.3 ml/min; Est GFR (African American) 118.9 ml/min; Est GFR (Non-African American) 102.6 ml/min; Magnesium 1.7 mg/dl (1.7-2.4); Phosphorus 2.8 mg/dl (2.5-4.9); Potassium 3.9 mmol/L (3.5-5.1)
--- NOTE | 2023-06-20 10:44 | Surgery Progress Note ---
Date of Service June 20, 2023 Assessment & Plan (1) Leaking PEG tube: Plan: pod 1 doing ok can start tube feeds at anytime rec 1/4 plain packing in old gastrostomy site to be changed daily. Admission and Anticipated Discharge Date Admission Date: June 17, 2023 Subjective pt seen. feeling ok. much improved without the acid leakage. Physical Exam Physical Exam: alert. nad abd: soft. incisions look good. J-tube in place Results & Data Vital Signs (Past 12 Hours) Vital Signs Temp Pulse Pulse Resp BP Pulse Ox O2 Del Method 06/20/23 10:21 36.8 C 84 66 16 133/69 94 06/20/23 09:27 Room Air 06/20/23 08:04 36.8 C 66 16 133/69 94 Room Air PG Care Time/CCT Total # of Minutes Spent Total Time Spent with Patient: Total time spent is greater than 50% in coordination of care (as documented) at patient's floor/unit and/or counseling patient: Coding Level of Care Code 85022 Post Operative Follow-Up Diagnoses Leaking PEG tube K94.23
--- NOTE | 2023-06-20 10:49 | Surgery Progress Note ---
Date of Service June 20, 2023 Assessment & Plan (1) Irritation around percutaneous endoscopic gastrostomy (PEG) tube site: Plan: Please continue Silvadene cream to post gastrostomy tube site May cover with dry gauze and tape (2) Esophageal adenocarcinoma: Plan: POD 1 Take Down Gastric Fistula, Placement of Jejunal Tube, removal of Gastric feeding tube. Laparoscopy, laparoscopic partial gastrectomy Patient to start Jejunal feedings at his convenience, has supplies for nurse to show him Requests to go home today Stable for d/c from a surgical perspective May f/u o/p with Dr. Skelton in 2 weeks Admission and Anticipated Discharge Date Admission Date: June 17, 2023 Subjective Patient sitting up in bed Offers no complaints at present time Review of Systems Constitutional: no fever and no chills Cardiovascular: no chest pain Gastrointestinal: no nausea and no vomiting Integumentary: + erythema (post g tube site ) Neurologic: no confusion and no memory loss Psychiatric: no problem reported Physical Exam Physical Exam: alert oriented Constitutional: cooperative, comfortable and + malnourished; no acute distress Respiratory: normal respiratory effort and able to speak in complete sentences; no respiratory distress Cardiovascular: Rate/Rhythm: regular rate Gastrointestinal (Abdomen): Inspection/Auscultation: + abdominal surgical incision (Left side abdomen Jejunotomy tube); abdomen not distended Neurologic: awake; not confused Speech / Cognition: normal speech Psychiatric: Orientation: oriented x 3 Results & Data Vital Signs (Past 12 Hours) Vital Signs Temp Pulse Pulse Resp BP Pulse Ox O2 Del Method 06/20/23 10:21 98.2 F 84 66 16 133/69 94 06/20/23 09:27 Room Air 06/20/23 08:04 98.2 F 66 16 133/69 94 Room Air PG Care Time/CCT Total # of Minutes Spent Total Time Spent with Patient: Total time spent is greater than 50% in coordination of care (as documented) at patient's floor/unit and/or counseling patient: Coding Level of Care Code 76539 Post Operative Follow-Up Diagnoses Irritation around percutaneous endoscopic gastrostomy (PEG) tube site K94.29 Esophageal adenocarcinoma C15.9
--- NOTE | 2023-06-20 16:58 | Discharge Summary ---
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 The patient did have a completion of the staging work-up which included a PET/CT scan which showed no evidence of metastatic disease. . Concurrent chemotherapy with radiation therapy. 28 - 33 fractions due to the fact that the patient is not a surgical candidate. Original feeding tube placed in mar 31 at [place], this fell out in his sleep, replaced by Dr Skelton 06/14/23 cxr on presentation has pneumoperioneum, but with recent surgery can be from this, pending CT abd pelvis Shows G-tube apparently placed within the stomach there is some fluid collection along the course of the G-tube some irritation in the rectus muscle however patient is not clinically appearing consistent with a rectus sheath infection at this time Principal Diagnosis removal of the G-tube due to leaking placement of J-tube for enteral nutrition esophageal adenocarcinoma with almost obstruction of his esophagus it should be noted patient chose to leave before institution of his hyperalimentation Discharge Exam awake and oriented he is with agitation and wanting to leave to have some time away from healthcare given the amount of things have happened to over the last few weeks seems of sound mind though threatening at times he did not believe the suicide risk he is in agreement to some Ativan to use via his J-tube and was instructed on how to the use of liquids and flushes in his J-tube also to use liquid Tylenol and ibuprofen for pain control. Card exam is regular lungs are clear abdomen has bandages in place. Discharge Data Allergies Allergy/AdvReac Type Severity Reaction Status Date / Time No Known Allergies Allergy Verified 06/07/23 08:08 Consultations 06/17/23 07:36 ED Decision to Admit Stat 06/17/23 14:33 Consult General Surgery Routine Procedures Performed Operation Date: 06/19/23 13:45 Actual Procedures p Take Down Gastric Fistula, Placement of Jejunal Tube, removal of Gastric feeding tube. - Simba Skelton DO s Laparoscopy, laparoscopic partial gastrectomy(Not Applicable) - Simba Skelton DO Ordered Studies 06/17/23 08:51 CT Abd and Pelvis [CT abd pelvis IV con only] Stat Hospital Course (1) Feeding tube obstruction: surgery is going to remove the feeding tube and due to bleeding and leakage of gastric contents On 06/19/2023 the patient had J-tube placed CT scan does suggest some irritation of the rectus muscle, one culture is with Gram positive, clinically the patient does not have any signs or symptoms of infection Pt refuses ivf and demands not to be npo he chews and spits food out. Patient wanted to leave the hospital no matter what and did not want to stay to have instructions on beginning of J-tube feedings or instructions on the pump or even have his home health care secured to begin feeding at home. I personally phoned [facility] on 2 occasions to assure good outpatient follow-up after patient leaves hospital. (2) Esophageal adenocarcinoma: diagnosis of esophageal adenocarcinoma has not received any radiation or chemotherapeutic treatment. Patient does have complete obstruction of his esophagus unable to pass an endoscope or to apply a stent. He is having difficulty handling secretions and getting oral nutrition with profound weight loss. Patient has some complaints of anxiety will offer lorazepam as needed anxiety Total Time Total Time Spent Total Time Spent (In Minutes): It required greater than 30 minutes to prepare this patient for discharge. Discharge Plan Discharge Items Patient Disposition: Home - Home Health Services Reason For Visit: OBSTRUCTED LEAKING BLEEDING PEG TUBE Discharge Diagnosis: leaking G tube site j tube placed esophageal cancer Activity: Per Instructions section Non-emergency contact: Primary Care Provider and Oncologist Call non-emergency contact if: your symptoms worsen Follow-up/Referrals: Ge Duenas [Primary Care Provider] - 06/26/23 10:00 am Diet: Regular Addtl Attending Provider Instructions: please contact [facility] to help coordinate your after care please return if you have fever or increased pain use liquid Children pain medication. try to use Tylenol 500-650 mg or ibuprofen 200mg with water flushes before or after Addtl Micro Paleontologist Provider Instructions: we are trying to arrange your home feeding our radiologic technologist chief has calculated that you will need fiber source at 60 ml and hour rate with free water 100ml at a time 6 times a day usually we start at a low rate to see if you will tolerate and you may notice come loose stool when starting Pending Studies at Discharge: No Stand-Alone Forms: My [facility] [employer], Smoking Cessation Medications and DC Order Prescriptions: New lorazepam [Ativan] 0.5 mg tablet 0.5 mg feeding tube TID PRN (Reason: anxiety) Qty: 10 0RF Rx Instructions: crush and dissolve in 5-10 ml water may also use sublingal No Action No Known Home Medications Discharge Orders: Discharge Order (Routine); Ordered 06/20/23 Ordered By: Ozzie Alcala Admission Data Admit Date/Time: 06/17/23 11:37 Attending Provider: Ozzie Alcala Admit Provider: Ozzie Alcala Primary Care Provider: Ge Duenas Other Providers: Bess,Fax; [employer]; Franklin Cook Matthew D. Other Interventions: Discharge Summary Assessment (RN) Last Done: 06/20/23 10:21 Coding Level of Care Code 29765 INP/OBS DISCH >30 MIN Diagnoses Feeding tube obstruction T85.598A Esophageal adenocarcinoma C15.9
== END 2023-06-20 11:10 | disposition home health service (06) | DRG 326 ==
LOC: ED 04:56 → 3W 11:37

== ENCOUNTER 2023-07-04 10:06 | Inpatient (IN) ==
[2023-07-04 11:24] LABS: Basophils # (auto) 0.07 K/uL (0.00-0.20); Basophils % (auto) 0.6 %; Eosinophils % (auto) 0.8 %; Hematocrit (blood only) 42.7 % (42.0-52.0); Hemoglobin 14.2 g/dl (14.0-18.0); Immature Granulocytes % (auto) 0.8 %; Lymphocytes # (auto) 2.19 K/uL (1.20-3.40); Lymphocytes % (auto) 18.5 %; Mean Corpuscular Hemoglobin 29.5 pg (25.0-34.0); Mean Corpuscular Hgb Conc 33.3 g/dL (32.0-36.0); Mean Corpuscular Volume 88.6 fL (80.0-100.0); Mean Platelet Volume 10.2 fL (9.4-12.4); Monocytes % (auto) 6.8 %; Neutrophils # (auto) 8.59 K/uL (1.40-6.50); Neutrophils % (auto) 72.5 %; Platelet Count 413 K/uL (130-400); RDW Coefficient of Variation 15.1 % (11.5-14.5); RDW Standard Deviation 49.1 fL (36.4-46.3); Red Blood Count 4.82 M/uL (4.70-6.10); White Blood Count 11.85 K/ul (4.8-10.8)
[2023-07-04] MEDS ORDERED: SODIUM CHLORIDE 0.9% 1,000 ML IV ONE (11:35)
[2023-07-04 11:38] LABS: Alanine Aminotransferase 24 U/L (7-52); Albumin Globulin Ratio 1.1 (0.9-2); Albumin Level 4.2 gm/dl (3.4-5.0); Alkaline Phosphatase 108 U/L (34-104); Anion Gap 9 (3-11); Aspartate Aminotransferase 18 U/L (13-39); BUN Creatinine Ratio 23.5 (10-20); Bilirubin,Total 0.6 mg/dl (0.2-1.0); Blood Urea Nitrogen 19 mg/dl (6-23); Calcium 10.1 mg/dl (8.6-10.3); Carbon Dioxide 25 mmol/L (21-32); Chloride 102 mmol/L (98-107); Est GFR (Non-African American) 96.6 ml/min; Globulin 3.7 gm/dl (2.5-4.0); Glucose 103 mg/dl (70-99(Fasting)); Potassium 4.3 mmol/L (3.5-5.1); Sodium 136 mmol/L (136-145); Total Protein 7.9 gm/dl (6.0-8.3)
--- NOTE | 2023-07-04 11:55 | Emergency Department Note ---
Impression & Plan Hypotension, Acute dehydration, Leukocytosis, Esophageal cancer ED Provider Note NAME: STEVEN GUEVARA AGE: 58 SEX: M : 1965 ARRIVES VIA: Walk-In INFORMANT: [Patient] ED PROVIDER(S): [Pj Saravia MD] CHIEF COMPLAINT: Dehydration HISTORY OF PRESENT ILLNESS: The patient is a 58-year-old male who has a history of a feeding tube. He has esophageal cancer and has a hard time taking in fluids and food. He was on a telemedicine call yesterday and hospitalization was recommended. Today, he saw his surgeon who also recommended he come to the ED for hospitalization and IV hydration. The patient states it has been at least a week of decreased oral intake. He has a hard time swallowing, he has had a hard time keeping up with his feeding tube supplementation. He feels quite thirsty, weak and dehydrated. There has been no fever, no cough or congestion. He has no abdominal pain. PMHx/PSHx/Social Hx: See Below PHYSICAL EXAM: GENERAL: Patient is in no acute distress. Thin and frail. HEENT: No acute trauma, normocephalic atraumatic, mucous membranes dry, no nasal congestion. NECK: No stridor, no adenopathy, no meningismus, trachea is midline. LUNGS: Clear to auscultation bilaterally, no wheeze, no rhonchi, breath sounds equal. Breath sounds diminished bilaterally. HEART: Without murmurs gallops or rubs, regular rate and rhythm. Heart tones are quite distant. ABDOMEN: Soft, nontender, no peritonitis. The patient has an old area of feeding tube placement in the left upper quadrant. There is some irritation around the site and there is still some ongoing drainage. No warmth to suggest infection. There is a new feeding tube in place in the lateral left upper quadrant. EXTREMITIES: No cyanosis, full range of motion of all the joints without pain or difficulty. NEUROLOGIC: Oriented x 3, no acute motor or sensory deficits, no focal weakness. SKIN: No jaundice, no diaphoresis. DIFFERENTIAL DIAGNOSIS: Dehydration, electrolyte imbalance, malnutrition, infection, anemia, among others. EMERGENCY DEPARTMENT PROCEDURES: MEDICAL DECISION MAKING: There is a mild leukocytosis, this could be consistent with infection although, the patient has had a mildly elevated white count documented previously. There was a normal hemoglobin. Platelet count slightly elevated. No renal failure or significant electrolyte abnormality. No concerning liver enzyme elevation. Chest film showed fullness to the right mediastinum secondary to his known esophageal cancer. There was no pneumonia or CHF. On exam, the patient was frail and appeared dehydrated. The patient was found to be somewhat hypotensive in triage. The patient is in need of a hospital stay for IV hydration and possibly, rehab. I did speak with the patient and case management, the on-call hospitalist was consulted. The patient received IV saline, 1 L. Prior/Outside records/notes reviewed: Discharge summary note from 06/20/2023 discussing his new feeding tube placement and esophageal adenocarcinoma. ECG per my interpretation: Indication was weakness. The ECG shows a normal sinus rhythm with a rate of 94. There is no ST elevation, no PVCs. The QTc is 467. Continuous Cardiac Monitoring per my interpretation: An order was placed for continuous cardiac monitoring. The monitor shows a rate of 80 with normal sinus rhythm. Imaging/x-ray results per my interpretation: Chest x-ray does not show CHF or pneumonia. The right sided fullness attributed to his esophageal cancer appears stable. Chronic Medical/Social conditions affecting care: Esophageal cancer and malnutrition issues. Care/Management discussed with: Case management, the on-call hospitalist. Level of care consideration(s): After review of the information above and other included data: --I believe the patient requires escalation of care to admission DISPOSITION: Admission Past Med/Surg History Medical History Post traumatic stress disorder History of chest pain relating to feeding tube coming out. Esophageal adenocarcinoma Gastrostomy tube in place 04/05/23 - Dr. Tapia [facility] Right wrist fracture surgical pin right wrist Hx of renal calculi passed on own Dysphagia "can't get food past my thyroid, difficult to swallow; no solid foods for 7-8 months" History of COVID-19 x6, most recent 03/2022, not hosp; dysphagia, gum swelling and made teeth hurt, "swollen" thyroid>still making it hard to eat solid food Anxiety Surgical History (Updated 06/21/23 @ 16:09 by Marguerite Carvalho RN) History of surgery (06/19/23) p Take Down Gastric Fistula, partial gastrectomy, Placement of Jejunal feeding Tube, removal of Gastric feeding tube. - Simba Skelton DO s Laparoscopy, laparoscopic partial gastrectomy(Not Applicable) - Simba Skelton DO History of surgery (06/14/23) Laparoscopy Assisted Placement of a Gastrostomy Tube(Not Applicable) - Simba Skelton DO History of endoscopy History of colonoscopy Hx of tonsillectomy Childhood; Hx of appendectomy Family History Father Prostate cancer Hypertension Dyslipidemia Brother Myocardial infarction, Onset Age: 53 Mother Stroke Brother No problems noted. Social History Smoking Status: Current some day smoker Tobacco Type: Cigarettes Age Started Using Tobacco: 28; packs per day: 1; Cigarettes Per Day: 5; Second Hand Exposure: No; Do You Dip or Chew Tobacco: No; Hx Alcohol Use: No Hx Substance Use: No Preferred Language: Cuban Communication Ability: Effective Visual Impairment: No Limitations Hearing Ability: Normal Servomechanism Assembler Required: No Beliefs That Will Affect Care: None marital status: Single Current Living Situation: Alone Current Living Situation Comment: Pt states he would like some help at home with ADLs current occupational status: unemployed 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; 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; [employer]; 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 How many Children do You have: 1 Feels Safe at Home: Yes Safety Concerns: Feels Safe At This Time Childhood Exposure to Second-Hand Smoke: No during the past year weight has: decreased > 10 lbs Assistive Devices: None Allergies Allergies Allergy/AdvReac Type Severity Reaction Status Date / Time No Known Allergies Allergy Verified 07/04/23 09:22 Home Meds Home Medications Medication Instructions Recorded Confirmed No Known Home Medications 07/04/23 07/04/23 Results & Data (ED) Vital Signs Vital Signs - 24 hr 07/04/23 10:16 07/04/23 11:51 07/04/23 12:00 Temperature 36.6 C Temperature Source Temporal Artery Scan Pulse Rate 102 H 80 Pulse Rate [Right Finger] 72 Pulse Rhythm [Right Finger] Regular Pulse Strength [Right Finger] Normal Respiratory Rate 18 20 Respiratory Effort / Characteristics Non-Labored Spontaneous Non-Labored Spontaneous Respiratory Depth Normal Normal Respiratory Pattern Regular Regular Blood Pressure 92/63 L Blood Pressure [Right Arm] 104/69 Blood Pressure Mean 72 Blood Pressure Mean [Right Arm] 80 Blood Pressure Position Sitting Blood Pressure Position [Right Arm] Sitting Pulse Oximetry 99 98 Oxygen Delivery Method Room Air Room Air Sepsis Recent Fever Within 48 Hours No Sepsis New/Unexplained Change in Mental Status No Sepsis Action Taken by Nursing No Action Required Home Medications Current Medication List: was personally reviewed by me Laboratory Data Attestation: I reviewed the patient's lab results. 07/04/23 11:01 07/04/23 11:01 Lab Results 07/04/23 Range/Units 11:01 WBC 11.85 H (4.8-10.8) K/ul RBC 4.82 (4.70-6.10) M/uL Hgb 14.2 (14.0-18.0) g/dl Hct 42.7 (42.0-52.0) % MCV 88.6 (80.0-100.0) fL MCH 29.5 (25.0-34.0) pg MCHC 33.3 (32.0-36.0) g/dL RDW Std Deviation 49.1 H (36.4-46.3) fL RDW Coeff of Mary 15.1 H (11.5-14.5) % Plt Count 413 H (130-400) K/uL MPV 10.2 (9.4-12.4) fL Immature Gran % (Auto) 0.8 % Neut % (Auto) 72.5 % Lymph % (Auto) 18.5 % [place] % (Auto) 6.8 % Eos % (Auto) 0.8 % Baso % (Auto) 0.6 % Neut # (Auto) 8.59 H (1.40-6.50) K/uL Lymph # (Auto) 2.19 (1.20-3.40) K/uL [place] # (Auto) 0.80 H (0.11-0.59) K/uL Eos # (Auto) 0.10 (0.00-0.50) K/uL Baso # (Auto) 0.07 (0.00-0.20) K/uL Immature Gran # (Auto) 0.10 (0.01-0.20) K/uL Sodium 136 (136-145) mmol/L Potassium 4.3 (3.5-5.1) mmol/L Chloride 102 (98-107) mmol/L Carbon Dioxide 25 (21-32) mmol/L Anion Gap 9 (3-11) BUN 19 (6-23) mg/dl Creatinine 0.81 (0.6-1.4) mg/dl Est Cr Clr Drug Dosing Not Reportable Est GFR ( Amer) 112.0 ml/min Est GFR (Non-Af Amer) 96.6 ml/min BUN/Creatinine Ratio 23.5 H (10-20) Glucose 103 H (70-99(Fasting)) mg/dl Uric Acid 3.4 (2.6-7.2) mg/dl Calcium 10.1 (8.6-10.3) mg/dl Phosphorus 3.5 (2.5-4.9) mg/dl Magnesium 2.1 (1.7-2.4) mg/dl Total Bilirubin 0.6 (0.2-1.0) mg/dl AST 18 (13-39) U/L ALT 24 (7-52) U/L Alkaline Phosphatase 108 H (34-104) U/L Total Protein 7.9 (6.0-8.3) gm/dl Albumin 4.2 (3.4-5.0) gm/dl Globulin 3.7 (2.5-4.0) gm/dl Albumin/Globulin Ratio 1.1 (0.9-2) Administered Medications Enteral Nutritional Formula (Fibersource Hn 1.2 Benjy 1000 Ml Bag) 1,000 ml JT .See Protocol JULIANA; Protocol Stop: 08/03/23 13:59 Last Admin: 07/04/23 18:21 Dose: 1,000 ml Documented By: RRR Multivitamins/Minerals (Multi Vit W/Minerals Liquid 15 Ml Udc) 15 ml PO QAM JULIANA Stop: 08/03/23 15:29 Last Admin: 07/04/23 17:08 Dose: 15 ml Documented By: RRR Sterile Water (Tube Feeding Water Flush) 100 ml JT Q4H JULIANA Stop: 08/03/23 14:14 Last Admin: 07/04/23 18:21 Dose: 100 ml Documented By: Admin: 07/04/23 18:20 Dose: Not Given Documented By: RRR Discontinued Medications Sodium Chloride (Nss) 1,000 mls @ 999 mls/hr IV .Q1H1M ONE Stop: 07/04/23 12:35 Last Infusion: 07/04/23 14:51 Dose: Infused Documented By: Admin: 07/04/23 13:40 Dose: 999 mls/hr Documented By: SWD Lactated Ringer's (Lr) 1,000 mls @ 999 mls/hr IV .Q1H1M ONE Stop: 07/04/23 13:18 Last Infusion: 07/04/23 15:57 Dose: Infused Documented By: Admin: 07/04/23 14:48 Dose: 999 mls/hr Documented By: RRR Thiamine HCl 100 mg/ Syringe 10 mls @ 2 mls/min IV NOW STA Stop: 07/04/23 15:02 Last Admin: 07/04/23 17:08 Dose: 2 mls/min Documented By: KYLEIGH Discharge Plan Visit Data Chief Complaint: Dehydration Stated Complaint: DEHYDRATION, REF BY DOC ED Provider: Pj Saravia Discharge Problem: Hypotension, Acute dehydration, Leukocytosis, Esophageal cancer Patient Disposition: Admitted As Inpatient Condition: Fair Discharge Instructions Interventions: ED Discharge Assessment Last Done: 07/04/23 14:06 Discharge Problem: Hypotension Qualifiers: Hypotension type: unspecified hypotension type Qualified Code(s): I95.9 - Hypotension, unspecified Leukocytosis Qualifiers: Leukocytosis type: unspecified Qualified Code(s): D72.829 - Elevated white blood cell count, unspecified Esophageal cancer Qualifiers: Malignant neoplasm of esophagus location: upper third Qualified Code(s): C15.3 - Malignant neoplasm of upper third of esophagus
[2023-07-04 12:00] LABS: Magnesium 2.1 mg/dl (1.7-2.4)
--- NOTE | 2023-07-04 12:04 | History & Physical Report ---
Date of Service July 04, 2023 Assessment & Plan (1) Generalized weakness: Plan: -Admit to med/tele -Currently hemodynamically stable and stable on RA -Has had progressive generalized weakness since last discharge -Patient has been unable to tolerate his recent J-tube feeds as he is experiencing increased abdominal discomfort and bloating while using Iso-Source 1.5 which is delivered to his home -Has been using ensure and mild via his J-tube as well and has been able to tolerate them -We will admit for dehydration and to have him re-evaluated by our wire saw operator to see if we can adjust his tube feeds; consult placed -We will monitor his electrolytes including phos and uric acid for signs of re- feeding syndrome -Currently receiving 1L NSS from the ED, will give 1L LR bolus after NSS bolus is finished then likely continue maintenance fluids -Electrolytes are currently stable, will add on urgent phos and uric acid now -Patient should likely be setup with the infusion center for routine IV hydration to prevent the need for recurrent admissions for dehydration in the future -Will obtain chest xray on admission to monitor for aspiration -SQ lovenox for DVT PPX -PT/OT/CM consults place to assist with home PT/OT/Home health -Will order regular diet with soft/bite sized portions -Aspiration precautions -AM CBC, CMP, Mag, Phos, Uric Acid (2) Hypotension: Plan: -Patient noted to be hypotensive on arrival at 92/63 -Patient appears clinically stable and is mentating appropriately -Likely due to significant dehydration and malnutrition -Continue IV fluids (3) Constipation: Plan: -Patient reports 5 days of constipation -Likely due to poor nutrition since last admission -Explained to patient that I wanted to obtain a KUB to rule out any obstruction prior to ordering a bowel regimen, he states that he is currently comfortable and wants to wait to get the KUB for now -Will start with re-hydration and restarting J-tub feeds to see if this resolves his constipation (4) Jejunostomy tube present: Plan: -Will obtain KUB to monitor for any structural abnormalities causing his recent abdominal discomfort (5) Esophageal adenocarcinoma: Plan: -Following with Rad oncology and Oncology to start radiation and chemotherapy in the near future -Continue to follow up with both Plan The patient was discussed with Dr. 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 In the ED he was noted to be hypotensive at 92/63 and tachycardic with HR of 102 but otherwise stable. Labs were significant for a stable leukocytosis of 11 and stable electrolytes. Prior to admission the patient was ordered 1L NSS. At the time of the exam the patient was sitting in bed in no acute distress. He states that he has been having difficulty tolerating his tube feeds at home. When asked to clarify, he states that he has been getting increased bloating and abdominal discomfort while using his Iso-Source 1.5 feeds via his J-tube. He has been trying to supplement with ensure and milk as well and has been tolerating those better. He states that he feels generally weak and dehydrated. He is interested in having PT/OT and home health setup for discharge. He denies recent fever, chills, chest pain, nausea, vomiting, dysuria, hematuria, melena, diarrhea, LE swelling, and recent trauma. He states that he has not had a bowel movement in 5 days. Of note, the patient is adamant about wanting to have a regular diet so he can chew food and spit it out. He can only swallow liquids at this time. He understands the increased risk for aspiration and possible respiratory failure and is willing to continue despite these risks. He is a full code and would want his Regenerator Operator, Bhavesh Everett to make medical decisions for him if he cannot make them himself. He recently saw Radiation oncology and underwent CT simulation. He is scheduled to start chemotherapy with Oncology next week per the patient. Please refer to Dr. Bañuelos's attestation for any changes to the treatment plan Allergies Allergy/AdvReac Type Severity Reaction Status Date / Time No Known Allergies Allergy Verified 07/04/23 09:22 Home Medications Medication Instructions Recorded Confirmed Type No Known Home Medications 07/04/23 07/04/23 History Past Med/Surg History Medical History Post traumatic stress disorder History of chest pain relating to feeding tube coming out. Esophageal adenocarcinoma Gastrostomy tube in place 04/05/23 - Dr. Tapia [facility] Right wrist fracture surgical pin right wrist Hx of renal calculi passed on own Dysphagia "can't get food past my thyroid, difficult to swallow; no solid foods for 7-8 months" History of COVID-19 x6, most recent 03/2022, not hosp; dysphagia, gum swelling and made teeth hurt, "swollen" thyroid>still making it hard to eat solid food Anxiety Surgical History (Updated 06/21/23 @ 16:09 by Marguerite Carvalho RN) History of surgery (06/19/23) p Take Down Gastric Fistula, partial gastrectomy, Placement of Jejunal feeding Tube, removal of Gastric feeding tube. - Simba Skelton DO s Laparoscopy, laparoscopic partial gastrectomy(Not Applicable) - Simba Skelton DO History of surgery (06/14/23) Laparoscopy Assisted Placement of a Gastrostomy Tube(Not Applicable) - Simba Skelton, History of endoscopy History of colonoscopy Hx of tonsillectomy Childhood; Hx of appendectomy Family History Father Prostate cancer Hypertension Dyslipidemia Brother Myocardial infarction, Onset Age: 53 Mother Stroke Brother No problems noted. Social History Smoking Status: Current some day smoker Tobacco Type: Cigarettes Age Started Using Tobacco: 28; packs per day: 1; Cigarettes Per Day: 5; Second Hand Exposure: No; Do You Dip or Chew Tobacco: No; Hx Alcohol Use: No Hx Substance Use: No Preferred Language: Wolof Communication Ability: Effective Visual Impairment: No Limitations Hearing Ability: Normal Employee Services Manager Required: No Beliefs That Will Affect Care: None marital status: Single Current Living Situation: Alone Current Living Situation Comment: Pt states he would like some help at home with ADLs current occupational status: unemployed 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; 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; [employer]; 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 How many Children do You have: 1 Feels Safe at Home: Yes Childhood Exposure to Second-Hand Smoke: No during the past year weight has: decreased > 10 lbs Assistive Devices: None Physical Exam Physical Exam: Physical Exam: General: In no acute distress, stated age, severely malnourished and cachectic, non-toxic appearing HEENT: Normocephalic, atraumatic, no scleral icterus, pupils around round, symmetrical, and reactive to light, dry mucus membranes, trachea midline, no thyromegaly Chest/Pulm: No respiratory distress, symmetrical chest expansion, clear breath sounds throughout Cardiac: RRR, no murmurs noted Abdomen: Negative for ascites and bruising, previous G-tube site with recent scab removal but is without bleeding or signs of infection, J-tube located in the left lateral abdomen is without acute signs of drainage or infection, hypoactive bowel sounds, soft, tender to palpation in the BL lower abdomen without rebound tenderness Musculoskeletal: Symmetrical and without signs of acute trauma, upper and lower extremities with full ROM, no atrophy, spasticity, or flaccidity Extremities: Radial, dorsalis pedis, and posterior tibial pulses are intact and symmetrical, no edema noted in the BL LE's Skin: Warm, dry, no rashes , lesions, or scars noted Neuro: Alert and oriented to person, place, month, year, and president, no focal defects,no tremors noted Psych: No acute distress, calm and cooperative during the exam Results & Data Results & Data Vital Signs (Past 12 Hours) Vital Signs Temp Pulse Resp BP Pulse Ox O2 Del Method 07/04/23 11:51 80 07/04/23 10:16 36.6 C 102 H 18 92/63 L 99 Room Air Laboratory Results Abnormal lab results 07/04/23 Range/Units 11:01 WBC 11.85 H (4.8-10.8) K/ul RDW Std Deviation 49.1 H (36.4-46.3) fL RDW Coeff of Mary 15.1 H (11.5-14.5) % Plt Count 413 H (130-400) K/uL Neut # (Auto) 8.59 H (1.40-6.50) K/uL Sac # (Auto) 0.80 H (0.11-0.59) K/uL BUN/Creatinine Ratio 23.5 H (10-20) Glucose 103 H (70-99(Fasting)) mg/dl Alkaline Phosphatase 108 H (34-104) U/L ECG Additional Comments: Normal sinus rhythm Right atrial enlargement Incomplete right bundle branch block Borderline ECG When compared with ECG of 17-JUN-2023 06:03, Vent. rate has increased BY 36 BPM Code Status & VTE Plan Code Status Full code VTE Prophylaxis Plan VTE Prophylaxis will be ordered: Yes Supervising Physician Co-Signing Physician Notes Attending addendum: I have physically seen this patient, have supervised the PERRY's activities, and agree with the H&P unless as otherwise noted. Assessment and Plan: Generalized weakness- Admit to medical telemetry Patient has undergone change from G-tube to J-tube, and still unable to tolerate food feeds at home, He was advised to come into the hospital for rehydration, having already received 1 L NSS bolus in the ED Give additional 1 L LR bolus, then maintenance fluids Consult to nutrition Consult PT/OT/CM Aspiration precautions Follow serial CBC with differential, chemistry profile, magnesium, phosphorus and uric acid Hypotension- Blood pressure relatively low upon arrival at 92/63 Has improved with IV fluids Follow on telemetry for now PG Care Time/CCT Total # of Minutes Spent Total Time Spent with Patient: Total time spent is greater than 50% in coordination of care (as documented) at patient's floor/unit and/or counseling patient: C[place] [address] INT INP/OBS CARE 2/55MIN Patient Type Established Medical Decision Making Moderate Complexity Diagnoses Generalized weakness R53.1 Hypotension I95.9 Constipation K59.00 Jejunostomy tube present Z93.4 Esophageal adenocarcinoma C15.9
[2023-07-04] MEDS ORDERED: LACTATED RINGER'S 1,000 ML IV ONE (12:18)
[2023-07-04] MEDS ORDERED: LORazepam 0.5 MG TAB PO PRN (12:22)
[2023-07-04] MEDS ORDERED: ACETAMINOPHEN 325 MG TAB PEG PRN (13:01)
[2023-07-04] MEDS ORDERED: ONDANSETRON INJ 2 MG/ML 2 ML VIAL IV PRN (13:01)
[2023-07-04 13:06] LABS: Phosphorus 3.5 mg/dl (2.5-4.9); Uric Acid 3.4 mg/dl (2.6-7.2)
--- NOTE | 2023-07-04 13:24 | XRay Report ---
SINGLE VIEW CHEST CLINICAL HISTORY: Aspiration FINDINGS: 2 AP, portable, upright chest radiographs are compared to study dated 06/17/2023 and correl ated with chest CT dated 03/06/2023. The examination is degraded by portable technique and patient rot ation. The cardiomediastinal silhouette is unremarkable. Emphysema and chronic interstitial thickeni ng is similar to previous. A right paratracheal density is unchanged and consistent with known lympha denopathy. There is mild bibasilar scarring/atelectasis. No airspace consolidation or large pleural e ffusion is identified. No pneumothorax is seen. The skeletal structures are osteopenic. There is chromosomal disorders counselor oh deformity of the left clavicle. IMPRESSION: 1. Emphysematous change with no acute cardiopulmonary abnormality identified. 2. Right paratracheal density is unchanged and consistent with known lymphadenopathy. ACT 112: Negative or not required by law. Electronically signed by: Pj Jenkins M.D. 07/04/2023 1:23 PM
[2023-07-04] MEDS ORDERED: Patient's HEIGHT &/or WEIGHT Needed SCH (14:45)
[2023-07-04] MEDS ORDERED: THIAMINE HCL 100 MG in SYRINGE 9 ML IV STA (14:58)
--- NOTE | 2023-07-04 15:18 | Electrocardiogram Report ---
Test Reason : Blood Pressure : / mmHG Vent. Rate : 094 BPM Atrial Rate : 094 BPM P-R Int : 134 ms QRS Dur : 108 ms QT Int : 374 ms P-R-T Axes : 089 086 072 degrees QTc Int : 467 ms Normal sinus rhythm Right atrial enlargement Incomplete right bundle branch block Borderline ECG When compared with ECG of 17-JUN-2023 06:03, Vent. rate has increased BY 36 BPM Confirmed by Juancho Castellano ([id number]) on 07/04/2023 3:17:50 PM Referred By: Confirmed By:Domo Castellano
[2023-07-04] MEDS ORDERED: Patient's HEIGHT &/or WEIGHT Needed STA (15:30)
[2023-07-04] MEDS: MULTI VIT W/MINERALS LIQUID 15 ML UDC PO SCH (17:08)
[2023-07-04] MEDS: TUBE FEEDING WATER FLUSH JT SCH ×3 (18:20→22:33)
[2023-07-04] MEDS: FIBERSOURCE HN 1.2 CAL 1000 ML BAG JT SCH (18:21)
[2023-07-04] MEDS: ENOXAPARIN INJ 40 MG/0.4 ML SYR SQ SCH ×2 (19:55→20:06)
[2023-07-04] MEDS: THIAMINE HCL 100 MG in SYRINGE 9 ML IV SCH (19:55)
[2023-07-04] MEDS ORDERED: FAMOTIDINE 20 MG TAB PO PRN (19:59)
[2023-07-04] MEDS ORDERED: IBUPROFEN 600 MG TAB PO PRN (19:59)
[2023-07-04] MEDS ORDERED: MoRPHine SULFATE 4 MG/ML 1 ML CARP\\VIAL IV PRN (21:08)
[2023-07-04] MEDS ORDERED: MoRPHine SULFATE 2 MG/ML CARP IV PRN (21:08)
[2023-07-04] MEDS ORDERED: HYDROmorphone INJ 0.5 MG/0.5 ML SYR IV STA (21:28)
[2023-07-04] MEDS ORDERED: POLYETHYLENE (MIRALAX) 17 GM PACK PO PRN (21:28)
[2023-07-05] MEDS ORDERED: HYDROmorphone INJ 0.5 MG/0.5 ML SYR IV PRN (01:26)
[2023-07-05] MEDS: HYDROmorphone INJ 0.5 MG/0.5 ML SYR IV PRN ×6 (02:06→23:43)
[2023-07-05] MEDS: TUBE FEEDING WATER FLUSH JT SCH ×6 (02:48→22:30)
[2023-07-05 03:08] LABS: Appearance Urine Cloudy (Clear); Bacteria Urine Automated Negative (Negative); Bilirubin Urine Negative (Negative); Blood Urine Negative (Negative); Color Urine Dark Yellow; Glucose Urine UA Negative (Negative); Ketones Urine Negative (Negative); Leukocyte Esterase Urine Negative (Negative); Nitrite Urine Negative (Negative); Protein Urine Trace (Negative); Specific Gravity Urine 1.029 (1.000-1.030); Urobilinogen Urine Negative (Negative)
[2023-07-05 06:14] LABS: Basophils # (auto) 0.05 K/uL (0.00-0.20); Basophils % (auto) 0.5 %; Eosinophils # (auto) 0.16 K/uL (0.00-0.50); Eosinophils % (auto) 1.6 %; Hemoglobin 11.7 g/dl (14.0-18.0); Lymphocytes # (auto) 2.26 K/uL (1.20-3.40); Lymphocytes % (auto) 23.3 %; Mean Corpuscular Hemoglobin 29.5 pg (25.0-34.0); Mean Corpuscular Hgb Conc 33.4 g/dL (32.0-36.0); Mean Corpuscular Volume 88.4 fL (80.0-100.0); Mean Platelet Volume 10.8 fL (9.4-12.4); Monocytes # (auto) 0.76 K/uL (0.11-0.59); Monocytes % (auto) 7.8 %; Neutrophils # (auto) 6.39 K/uL (1.40-6.50); Neutrophils % (auto) 65.8 %; Platelet Count 327 K/uL (130-400); RDW Coefficient of Variation 15.1 % (11.5-14.5); RDW Standard Deviation 48.9 fL (36.4-46.3); Red Blood Count 3.96 M/uL (4.70-6.10); White Blood Count 9.72 K/ul (4.8-10.8)
[2023-07-05 06:33] LABS: Albumin Globulin Ratio 1.3 (0.9-2); Albumin Level 3.5 gm/dl (3.4-5.0); BUN Creatinine Ratio 26.9 (10-20); Bilirubin,Total 0.4 mg/dl (0.2-1.0); Calcium 8.8 mg/dl (8.6-10.3); Creatinine Clr Calc Pharmacy 92.5 ml/min; Est GFR (Non-African American) 104.4 ml/min; Globulin 2.8 gm/dl (2.5-4.0); Magnesium 1.9 mg/dl (1.7-2.4); Phosphorus 2.9 mg/dl (2.5-4.9); Potassium 3.9 mmol/L (3.5-5.1); Total Protein 6.3 gm/dl (6.0-8.3); Uric Acid 3.8 mg/dl (2.6-7.2)
[2023-07-05] MEDS ORDERED: DOCUSATE SODIUM/SENNA 50/8.6MG TAB PO SCH (09:00)
[2023-07-05] MEDS ORDERED: POLYETHYLENE (MIRALAX) 17 GM PACK PO SCH (09:00)
[2023-07-05] MEDS ORDERED: MULTI VIT W/MINERALS LIQUID 15 ML UDC PO SCH (09:00)
[2023-07-05] MEDS: MULTI VIT W/MINERALS LIQUID 15 ML UDC PO SCH (09:50)
[2023-07-05] MEDS: THIAMINE HCL 100 MG in SYRINGE 9 ML IV SCH ×2 (10:50→20:28)
[2023-07-05] MEDS ORDERED: IBUPROFEN 200 MG/10 ML UDC PO PRN (10:50)
[2023-07-05] MEDS ORDERED: ACETAMINOPHEN SUSP 325 MG/10.15 ML UDC PEG PRN (10:52)
[2023-07-05] MEDS ORDERED: POLYETHYLENE (MIRALAX) 17 GM PACK PEG PRN (12:40)
--- NOTE | 2023-07-05 17:05 | Hospitalist Progress Note ---
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 He was sent to ED from surgery clinic 07/04 with weakness, dehydration, feeding intolerance. He states he is unable to tolerate his current tube feeding formula Isosource 1.5 which causes intolerable nausea bloating and distention. He was trying to supplement with ensure and milk which he tolerated better but not getting in nearly enough calories or fluid. -consulted marine fitter, tube feeding initiated with fibersource, tolerating 30 mL/h with short term goal of 60mL -has persistent nausea and needing IV ondansetron, added trial of metoclopramide q6h -is constipated with no BM for almost a week, miralax ordered. suspect poor motility and inadequate input -is at significant risk for refeeding syndrome, daily AM BMP mag phos ordered -is adamant that he will leave the hospital Sunday, could not be dissuaded from this plan (2) Generalized weakness: Plan: -Has had progressive generalized weakness since last discharge -related to dehydration and malnutrition (3) Hypotension: Plan: -Patient noted to be hypotensive on arrival at 92/63, improved after IV fluids -Patient appears clinically stable and is mentating appropriately, no evidence of sepsis -Likely due to significant dehydration and malnutrition -Continue IV fluids until TF nearer goal rate (4) Constipation: Plan: -Patient reports 5 days of constipation -refused KUB on admission -Will start with bowel regimen and re-hydration and restarting J-tub feeds to see if this resolves his constipation (5) Jejunostomy tube present: (6) Esophageal adenocarcinoma: Plan: -Following with Rad oncology and Oncology to start radiation and chemotherapy in the near future -Continue to follow up with both (7) Esophageal cancer: (8) Severe protein-energy malnutrition: Plan: caused by complete esophageal obstruction and intolerance of tube feeding Plan Admission and Anticipated Discharge Date Admission Date: July 04, 2023 Subjective angry about all his difficulties with the healthcare system and trouble with his feeds delaying his cancer treatment denies abdominal pain. abdominal wound from fistula site has healed well. has nausea. on TF at 58 seen midmorning. no emesis. Physical Exam 2 Physical Exam: PHYSICAL EXAMINATION Last 24h vital signs reviewed, see documentation in flowsheet General: comfortable appearing, no distress, lying in bed HEENT: Normocephalic, atraumatic, pupils round and equal, sclerae anicteric, no conjunctival injection, moist mucus membranes Lungs: Normal respiratory effort. Clear to auscultation bilaterally. No RRW Heart: Regular rate and rhythm, no murmurs. No JVD Abdomen: Scaphoid, soft, nontender, nondistended. Midline lower abdomen site of previous fistula has healed over with some eschar covering it no erythema no tenderness, J-tube left side of abdomen clean dry and intact, hooked up to tube feeds currently. Bowel sounds present. Extremities: Warm, dry, well-perfused. No extremity edema. Neuro: Alert and oriented x 4, face symmetric, moves 4 extremities well Psych: irritable/angry affect and behavior Results & Data Results & Data Vital Signs (Past 12 Hours) Vital Signs Temp Pulse Pulse Resp BP Pulse Ox O2 Del Method 07/05/23 08:18 36.4 C L 73 18 100/66 98 Room Air 07/05/23 08:17 48 L Laboratory Results 07/05/23 05:34 07/05/23 05:34 PG Care Time/CCT Total # of Minutes Spent Total Time Spent with Patient: Total time spent is greater than 50% in coordination of care (as documented) at patient's floor/unit and/or counseling patient: Coding Level of Care Code 30860 SUB INP/OBS CARE 2/35MIN Diagnoses Feeding intolerance R63.39 Generalized weakness R53.1 Hypotension I95.9 Constipation K59.00 Jejunostomy tube present Z93.4 Esophageal adenocarcinoma C15.9 Esophageal cancer C15.3 Malignant neoplasm of esophagus location: upper third Severe protein-energy malnutrition E43 (7) Esophageal cancer Malignant neoplasm of esophagus location: upper third Qualified Code(s): C 15.3 - Malignant neoplasm of upper third of esophagus
[2023-07-05] MEDS: METOCLOPRAMIDE HCL 5 MG TABLET PO SCH ×2 (18:55→23:43)
[2023-07-05] MEDS: ENOXAPARIN INJ 40 MG/0.4 ML SYR SQ SCH (20:27)
[2023-07-05] MEDS: FIBERSOURCE HN 1.2 CAL 1000 ML BAG JT SCH (20:27)
[2023-07-06] MEDS: TUBE FEEDING WATER FLUSH JT SCH ×6 (01:45→22:31)
[2023-07-06] MEDS: HYDROmorphone INJ 0.5 MG/0.5 ML SYR IV PRN ×3 (03:58→21:24)
[2023-07-06] MEDS: METOCLOPRAMIDE HCL 5 MG TABLET PO SCH ×5 (05:36→23:31)
[2023-07-06] MEDS: SENNOSIDES 8.8 MG/5 ML UDC PEG SCH (09:40)
[2023-07-06] MEDS: THIAMINE HCL 100 MG in SYRINGE 9 ML IV SCH (09:40)
[2023-07-06] MEDS: MULTI VIT W/MINERALS LIQUID 15 ML UDC PO SCH (09:42)
[2023-07-06] MEDS: DOCUSATE SODIUM SYRUP 100 MG/10 ML UDC PEG SCH (09:42)
[2023-07-06] MEDS: POLYETHYLENE (MIRALAX) 17 GM PACK PEG SCH (09:42)
[2023-07-06 09:47] LABS: Basophils # (auto) 0.05 K/uL (0.00-0.20); Basophils % (auto) 0.4 %; Eosinophils # (auto) 0.11 K/uL (0.00-0.50); Eosinophils % (auto) 0.9 %; Hematocrit (blood only) 39.5 % (42.0-52.0); Hemoglobin 12.8 g/dl (14.0-18.0); Immature Granulocytes # (auto) 0.09 K/uL (0.01-0.20); Immature Granulocytes % (auto) 0.7 %; Lymphocytes # (auto) 1.29 K/uL (1.20-3.40); Lymphocytes % (auto) 10.6 %; Mean Corpuscular Hemoglobin 29.6 pg (25.0-34.0); Mean Corpuscular Hgb Conc 32.4 g/dL (32.0-36.0); Mean Corpuscular Volume 91.2 fL (80.0-100.0); Mean Platelet Volume 10.3 fL (9.4-12.4); Monocytes # (auto) 0.84 K/uL (0.11-0.59); Monocytes % (auto) 6.9 %; Neutrophils # (auto) 9.82 K/uL (1.40-6.50); Neutrophils % (auto) 80.5 %; Platelet Count 351 K/uL (130-400); RDW Coefficient of Variation 15.2 % (11.5-14.5); RDW Standard Deviation 51.3 fL (36.4-46.3); Red Blood Count 4.33 M/uL (4.70-6.10)
[2023-07-06 10:04] LABS: Phosphorus 2.9 mg/dl (2.5-4.9)
[2023-07-06 14:26] LABS: Albumin Globulin Ratio 1.2 (0.9-2); Albumin Level 3.9 gm/dl (3.4-5.0); BUN Creatinine Ratio 21.6 (10-20); Bilirubin,Total 0.4 mg/dl (0.2-1.0); Calcium 9.2 mg/dl (8.6-10.3); Creatinine Clr Calc Pharmacy 86.5 ml/min; Est GFR (African American) 116.2 ml/min; Est GFR (Non-African American) 100.3 ml/min; Globulin 3.2 gm/dl (2.5-4.0); Magnesium 2.1 mg/dl (1.7-2.4); Potassium 3.7 mmol/L (3.5-5.1); Total Protein 7.1 gm/dl (6.0-8.3)
[2023-07-06] MEDS: FIBERSOURCE HN 1.2 CAL 1000 ML BAG JT SCH (17:29)
--- NOTE | 2023-07-06 18:12 | Hospitalist Progress Note ---
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 He was sent to ED from surgery clinic 07/04 with weakness, dehydration, feeding intolerance. He states he is unable to tolerate his current tube feeding formula Isosource 1.5 which causes intolerable nausea bloating and distention. He was trying to supplement with ensure and milk which he tolerated better but not getting in nearly enough calories or fluid. -consulted field artillery crewmember, tube feeding initiated with fibersource, tolerating 60 mL/h at short term goal of 60mL - nausea and feeding intolerance may be improved with metoclopramide q6h -is constipated with no BM for almost a week, he refused KUB on admission, miralax and senna ordered. enema ordered today discussed with nursing suspect poor motility and inadequate input -is at significant risk for refeeding syndrome, daily AM BMP mag phos reviewed 07/06 and unremarkable, ordered for a.m. -is adamant that he will leave the hospital at 9:30 AM tomorrow, could not be dissuaded from this plan (2) Generalized weakness: Plan: -Has had progressive generalized weakness since last discharge -related to dehydration and malnutrition (3) Hypotension: Plan: -Patient noted to be hypotensive on arrival at 92/63, improved after IV fluids -Patient appears clinically stable and is mentating appropriately, no evidence of sepsis -Likely due to significant dehydration and malnutrition -Continue IV fluids until TF nearer goal rate - blood pressure improved mostly normotensive (4) Constipation: Plan: - see above (5) Jejunostomy tube present: (6) Esophageal adenocarcinoma: Plan: -Following with Rad oncology and Oncology to start radiation and chemotherapy in the near future -Continue to follow up with both (7) Esophageal cancer: (8) Severe protein-energy malnutrition: Plan: caused by complete esophageal obstruction and intolerance of tube feeding Plan Admission and Anticipated Discharge Date Admission Date: July 06, 2023 Subjective he is tolerating his tube feeding at goal rate of 60 mill since mid afternoon. He did have a sense of fullness with this he has been receiving intermittent doses of IV opioids Physical Exam 2 Physical Exam: PHYSICAL EXAMINATION Last 24h vital signs reviewed, see documentation in flowsheet General: thin gentleman sitting in bed HEENT: Normocephalic, atraumatic, pupils round and equal, sclerae anicteric, no conjunctival injection, moist mucus membranes Lungs: Normal respiratory effort. Clear to auscultation bilaterally. No RRW Heart: Regular rate and rhythm, no murmurs. No JVD Abdomen: Scaphoid, soft, nontender, nondistended. Midline lower abdomen site of previous fistula has healed over with some eschar covering it no erythema no tenderness, J-tube left side of abdomen clean dry and intact, hooked up to tube feeds currently. Bowel sounds are quiet, present. exam unchanged 07/06 Extremities: Warm, dry, well-perfused. No extremity edema. Neuro: Alert and oriented x 4, face symmetric, moves 4 extremities well Psych: irritable/angry affect and behavior Results & Data Results & Data Vital Signs (Past 12 Hours) Vital Signs Temp Pulse Pulse Resp BP Pulse Ox O2 Del Method 07/06/23 15:55 36.7 C 60 15 112/62 93 Room Air 07/06/23 15:31 59 L 07/06/23 11:42 36.7 C 64 14 99/51 L 95 Room Air 07/06/23 09:40 Room Air 07/06/23 07:37 52 L 07/06/23 07:15 36.8 C 67 18 103/66 94 Room Air Laboratory Results 07/06/23 09:18 07/06/23 09:18 PG Care Time/CCT Total # of Minutes Spent Total Time Spent with Patient: Total time spent is greater than 50% in coordination of care (as documented) at patient's floor/unit and/or counseling patient: Coding Level of Care Code 62990 SUB INP/OBS CARE 2/35MIN Diagnoses Feeding intolerance R63.39 Generalized weakness R53.1 Hypotension I95.9 Constipation K59.00 Jejunostomy tube present Z93.4 Esophageal adenocarcinoma C15.9 Esophageal cancer C15.3 Malignant neoplasm of esophagus location: upper third Severe protein-energy malnutrition E43 (7) Esophageal cancer Malignant neoplasm of esophagus location: upper third Qualified Code(s): C 15.3 - Malignant neoplasm of upper third of esophagus
[2023-07-06] MEDS: ENOXAPARIN INJ 40 MG/0.4 ML SYR SQ SCH (20:21)
[2023-07-06] MEDS ORDERED: SOD PHOSPHATE/SOD BIPHOSPHATE ENEMA 132 ML BTL PR STA (20:38)
[2023-07-06] MEDS: THIAMINE HCL 100 MG TAB PO SCH (20:40)
[2023-07-07] MEDS: HYDROmorphone INJ 0.5 MG/0.5 ML SYR IV PRN (00:51)
[2023-07-07] MEDS: TUBE FEEDING WATER FLUSH JT SCH ×2 (00:53→06:31)
[2023-07-07] MEDS: METOCLOPRAMIDE HCL 5 MG TABLET PO SCH (06:31)
[2023-07-07] MEDS: POLYETHYLENE (MIRALAX) 17 GM PACK PEG SCH (08:32)
[2023-07-07] MEDS: DOCUSATE SODIUM SYRUP 100 MG/10 ML UDC PEG SCH (08:32)
[2023-07-07] MEDS: MULTI VIT W/MINERALS LIQUID 15 ML UDC PO SCH (08:32)
[2023-07-07] MEDS: THIAMINE HCL 100 MG TAB PO SCH (08:32)
[2023-07-07] MEDS: SENNOSIDES 8.8 MG/5 ML UDC PEG SCH (08:32)
[2023-07-07 08:52] LABS: Albumin Globulin Ratio 1.2 (0.9-2); Albumin Level 3.7 gm/dl (3.4-5.0); BUN Creatinine Ratio 23.3 (10-20); Bilirubin,Total 0.3 mg/dl (0.2-1.0); Creatinine Clr Calc Pharmacy 107.4 ml/min; Est GFR (African American) 126.7 ml/min; Est GFR (Non-African American) 109.3 ml/min; Globulin 3.1 gm/dl (2.5-4.0); Phosphorus 2.9 mg/dl (2.5-4.9); Potassium 4.1 mmol/L (3.5-5.1); Total Protein 6.8 gm/dl (6.0-8.3)
--- NOTE | 2023-07-07 19:40 | Discharge Summary ---
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 In the ED he was noted to be hypotensive at 92/63 and tachycardic with HR of 102 but otherwise stable. Labs were significant for a stable leukocytosis of 11 and stable electrolytes. Prior to admission the patient was ordered 1L NSS. At the time of the exam the patient was sitting in bed in no acute distress. He states that he has been having difficulty tolerating his tube feeds at home. When asked to clarify, he states that he has been getting increased bloating and abdominal discomfort while using his Iso-Source 1.5 feeds via his J-tube. He has been trying to supplement with ensure and milk as well and has been tolerating those better. He states that he feels generally weak and dehydrated. He is interested in having PT/OT and home health setup for discharge. He denies recent fever, chills, chest pain, nausea, vomiting, dysuria, hematuria, melena, diarrhea, LE swelling, and recent trauma. He states that he has not had a bowel movement in 5 days. Of note, the patient is adamant about wanting to have a regular diet so he can chew food and spit it out. He can only swallow liquids at this time. He understands the increased risk for aspiration and possible respiratory failure and is willing to continue despite these risks. He is a full code and would want his Mussel Farmer, Bhavesh Everett to make medical decisions for him if he cannot make them himself. He recently saw Radiation oncology and underwent CT simulation. He is scheduled to start chemotherapy with Oncology next week per the patient. Principal Diagnosis abdominal pain, nausea, tube feeding intolerance, constipation Discharge Exam PHYSICAL EXAMINATION Last 24h vital signs reviewed, see documentation in flowsheet General: awake alert sitting in bed HEENT: Normocephalic, atraumatic, pupils round and equal, sclerae anicteric, no conjunctival injection, moist mucus membranes Lungs: Normal respiratory effort. Heart: deferred Abdomen: soft nontender nondistended G-tube left lower quadrant clean dry and intact Extremities: Warm, dry, well-perfused. No extremity edema. 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 He was sent to ED from surgery clinic 07/04 with weakness, dehydration, feeding intolerance. He states he is unable to tolerate his current tube feeding formula Isosource 1.5 which causes intolerable nausea bloating pain and distention. He was trying to supplement with ensure and milk which he tolerated better but not getting in nearly enough calories or fluid. -consulted endo tech, tube feeding initiated with fibersource, tolerated 60 mL/h which is his short-term goal. After stability on tube feeding perhaps for a week this can be increased but it is set at is a low rate because of risk of refeeding syndrome - nausea and feeding intolerance may be improved with metoclopramide q6h - gave prescription for this on discharge -was constipated with no BM for almost a week, he refused KUB on admission, miralax and senna ordered. enema 07/06 with good stool output. he will continue MiraLAX at home -is at significant risk for refeeding syndrome, daily AM BMP mag phos reviewed 07/06 and unremarkable, 07/07 and K/mag/phos remain wnl. he continues to be at risk for refeeding syndrome and this is not irregular discharge and that I would prefer he remain in the hospital 1-2 more days for electrolyte monitoring however he is adamant that he leave the hospital this morning, I gave him strict return precautions - home infusion and home health set up prior to discharge (2) Generalized weakness: -Has had progressive generalized weakness since last discharge -related to dehydration and malnutrition - improved (3) Hypotension: -Patient noted to be hypotensive on arrival at 92/63, improved after IV fluids -Patient appears clinically stable and is mentating appropriately, no evidence of sepsis -Likely due to significant dehydration and malnutrition -Continue IV fluids until TF nearer goal rate - blood pressure improved mostly normotensive (4) Constipation: - see above (5) Jejunostomy tube present: (6) Esophageal adenocarcinoma: -Following with Rad oncology and Oncology to start radiation and chemotherapy in the near future -Continue to follow up with both (7) Esophageal cancer: (8) Severe protein-energy malnutrition: caused by complete esophageal obstruction and intolerance of tube feeding Plan Total Time Total Time Spent Total Time Spent (In Minutes): 25 minutes spent coordinating care for discharge Discharge Plan Discharge Items Patient Disposition: Home - Home Health Services Reason For Visit: DEHYDRATION, NEED FOR TUBE FEEDS Discharge Diagnosis: Difficulty tolerating tube feeding, malnutrition, esophageal cancer Condition on Discharge: Fair Activity: Resume your previous activity Non-emergency contact: Oncologist Call non-emergency contact if: you have any medication questions, your symptoms worsen and you have a fever Follow-up/Referrals: Mainor Zarate MD [Physician] - [facility],Home Healthcare [Non-Staff] - Ge Duenas [Primary Care Provider] - Diet: Other - See Diet Comment Diet Comment: no food by mouth because of esophageal obstruction, continue tube feeding Addtl Attending Provider Instructions: Continue tube feeding for now at max of 60 mL/h Follow up with your oncologist and radiation oncologist as soon as possible. -you should have labs drawn early next week to check your electrolytes We arranged home health with [facility], this is the only agency available with your insurance. We checked with many other agencies. You are at risk for a condition called refeeding syndrome - this can cause severe electrolyte wasting and can in some cases be life-threatening. I advised you stay in the hospital until tube feeding is well established, but you stated you're unable/unwilling to do so. -seek immediate medical attention if you have worsening weakness, lightheadedness, loss of consciousness, muscle cramps, or palpitations Pending Studies at Discharge: No Stand-Alone Forms: [employer], Smoking Cessation Medications and DC Order Prescriptions: New Fibersource HN 0.05 gram- 1.2 kcal/mL Liquid See Rx Instructions .ROUTE .COMPLEX Qty: 0 0RF Rx Instructions: home infusion metoclopramide HCl 5 mg Tablet 5 mg feeding tube Q6 PRN (Reason: nausea and vomiting) Qty: 30 0RF sennosides [senna] 8.8 mg/5 mL Syrup 8.8 mg PEG QAM PRN (Reason: constipation) Qty: 120 0RF thiamine HCl (vitamin B1) 100 mg Tablet 100 mg feeding tube BID Qty: 60 0RF polyethylene glycol 3350 [Miralax] 17 gram/dose powder 17 g PO DAILY PRN (Reason: constipation) Qty: 119 0RF Discharge Orders: Discharge Order (Routine); Ordered 07/07/23 Ordered By: Kadie Araiza Admission Data Admit Date/Time: 07/06/23 13:00 Attending Provider: Kadie Araiza Admit Provider: Kadie Araiza Primary Care Provider: Ge Duenas Other Providers: Chu Alejandro; [facility],Home Healthcare Other Interventions: Discharge Summary Assessment (RN) Last Done: 07/07/23 09:10 Coding Level of Care Code 08950 IN/OBS DISCH 30 MIN/LESS Diagnoses Feeding intolerance R63.39 Generalized weakness R53.1 Hypotension I95.9 Constipation K59.00 Jejunostomy tube present Z93.4 Esophageal adenocarcinoma C15.9 Esophageal cancer C15.3 Malignant neoplasm of esophagus location: upper third Severe protein-energy malnutrition E43
== END 2023-07-07 09:50 | disposition home health service (06) | DRG 640 ==
LOC: 2W 10:06 → ED 10:06 → SUATTDRO 12:04 → 2W 14:06